=== PATIENT | female | born 1950 | race Caucasian/White ===

== ENCOUNTER → 2016-09-20 | Outpatient (CLI) | payer BC ==
[~2016-09-20] MED LIST: CLPD75T PO; LOVA40TA54 PO; LVT.112T PO; NFVALS90T PO
== END ==
LOC: CARD 13:38
PROVIDERS: ATTEND Internal Medicine
DX: Z48.812 Encounter for surgical aftercare following surgery on the circulatory system (principal); Z95.2 Presence of prosthetic heart valve
CPT/HCPCS: 93306

== ENCOUNTER → 2017-04-26 | Outpatient (CLI) | payer BC | LOC: CARD 13:26 | PROVIDERS: ATTEND Internal Medicine | DX: Z48.812 Encounter for surgical aftercare following surgery on the circulatory system (principal); Z45.2 Encounter for adjustment and management of vascular access device | CPT/HCPCS: 93306 ==

== ENCOUNTER → 2017-10-22 | Outpatient (CLI) | payer MEDICARE, BC ==
[~2017-10-22] VITALS: Ht 154.9 cm; Wt 78.9 kg
[~2017-10-22] MED LIST changes: +LIDOCAINE 1% INJ 20 ML 20 ML VIAL INJ ONE
[2017-10-22 13:17] VITALS: BP 124/80
[2017-10-22 13:51] VITALS: BP 112/74
--- NOTE | 2017-10-22 15:39 | Diagnostic Imaging Report ---
INDICATION: Right breast mass. The patient presents for ultrasound-guided core biopsy. TECHNIQUE: The patient was brought to the procedure room and placed on the table in the supine position. Ultrasound imaging over the right breast was performed to evaluate for an appropriate entry site. The right breast was then prepped and draped in the usual sterile fashion. A small amount of 1% lidocaine was utilized for local anesthesia. A total of four core biopsies was obtained of the ill-defined hypoechoic mass at the 11 o'clock location of the right breast 10 cm from the nipple utilizing a 14-gauge Achieve needle. A localizer clip was then deployed. Hemostasis was obtained using manual compression. The patient tolerated the procedure well and left the Department in stable condition. IMPRESSION: Successful ultrasound-guided core biopsy of the hypoechoic mass at the 11 o'clock location of the right breast 10 cm from the nipple. Dictated by: Dictated on workstation # [id number]
--- NOTE | 2017-10-22 15:45 | Diagnostic Imaging Report ---
INDICATION: Right breast mass. Patient is status post right breast biopsy using ultrasound guidance. TECHNIQUE: Unilateral right 2D CC and ML mammography was performed. FINDINGS: There is some increased density in the upper-outer right breast at the site of biopsy performed earlier the same today. A biopsy clip in the upper outer right breast is seen. The remainder of the breast is stable. IMPRESSION: Postbiopsy changes and clip placement at the area of increased density in the upper outer right breast at posterior depth. The pathologic results are currently pending. Dictated by: Dictated on workstation # [id number]
== END ==
LOC: RAD 12:38
PROVIDERS: ATTEND Surgery
DX: N63.11 Unspecified lump in the right breast, upper outer quadrant (principal); N61.0 Mastitis without abscess
CPT/HCPCS: 19083; 88305

== ENCOUNTER → 2018-01-15 | Outpatient (CLI) | payer BC, MEDICARE ==
[~2018-01-15] MED LIST changes: +CATHETER FLUSH 10 ML SYR IV PRN; -LIDOCAINE 1% INJ 20 ML 20 ML VIAL INJ ONE; +REGADENOSON 0.4 MG/5 ML SYR (LEXISCAN) IV ONE
[2018-01-15 09:57] VITALS: BP 166/77
--- NOTE | 2018-01-16 12:02 | STRESS TEST ---
DATE OF SERVICE: 01/15/2018 RESTING AND POST REGADENOSON TECHNETIUM-99M TETROFOSMIN SPECT CT IMAGING ORDERING PHYSICIAN: Jonna Bella MD, YVONNE, FACP, FACC. PRIMARY PHYSICIAN: Dr. Zuniga. CLINICAL DIAGNOSES: Coronary artery disease, diabetes, hypertension. Baseline images were carried out after injection of 10.36 mCi of technetium-99m Tetrofosmin. This was followed by 0.4 mg regadenoson and 29.2 mCi of technetium-99m Tetrofosmin for stress imaging. The electrocardiogram showed sinus rhythm with occasional isolated premature atrial contractions. The electrocardiogram did not change significantly with the regadenoson infusion. The patient tolerated the procedure well. Review of images at rest and following stress does not indicate any distinct perfusion defects consistent with significant myocardial ischemia or infarction. Gated images show normal global left ventricular systolic function with normal regional wall motion. Left ventricular ejection fraction is calculated to be 73%. Left ventricular end-diastolic volume is 44 mL. TID is absent (1.03). CONCLUSIONS: 1. No evidence of any significant myocardial ischemia or infarction is seen. 2. Normal regional wall motion. 3. Normal global left ventricular systolic function with a calculated ejection fraction of 73%. Job ID: [id number] DocumentID: [id number] Dictated Date: 01/16/2018 09:45:30 School Counsellor Date: 01/16/2018 12:01:43 Dictated By: JONNA BELLA MD, MA, FACP, FACC,
== END ==
LOC: CARD 07:24
PROVIDERS: ATTEND Internal Medicine Cardiovascular Disease
DX: I25.10 Atherosclerotic heart disease of native coronary artery without angina pectoris (principal); I10 Essential (primary) hypertension; E11.9 Type 2 diabetes mellitus without complications; E66.8 Other obesity; Z68.32 Body mass index [BMI] 32.0-32.9, adult; Z95.2 Presence of prosthetic heart valve
CPT/HCPCS: 78452; 93017

== ENCOUNTER 2018-08-23 05:47 | Outpatient (CLI) | payer MEDICARE ==
[~2018-08-23] VITALS: Ht 149.9 cm; Wt 78.5 kg
[~2018-08-23 05:47] MED LIST changes: -CATHETER FLUSH 10 ML SYR IV PRN; -REGADENOSON 0.4 MG/5 ML SYR (LEXISCAN) IV ONE
[2018-08-23] MEDS ORDERED: METO-387 PO (13:51)
[2018-08-23] MEDS ORDERED: ATOR40TA70 PO (13:51)
[2018-08-23] MEDS ORDERED: LEVO100T7 PO (13:51)
[2018-08-23] MEDS ORDERED: CAND1TAB16 PO (13:51)
[2018-08-23] MEDS ORDERED: WARF5TAB8 PO ×2 (13:51)
== END 2018-08-23 13:53 | disposition home or self-care (01) ==
LOC: PREOP 05:47
PROVIDERS: ATTEND Internal Medicine
DX: Z01.818 Encounter for other preprocedural examination (principal)

== ENCOUNTER 2018-08-30 08:01 | Day surgery (SDC) | payer MEDICARE ==
[~2018-08-30] VITALS: Ht 149.9 cm; Wt 78.5 kg
[~2018-08-30 08:01] MED LIST changes: +ATOR40TA70 PO; +CAND1TAB16 PO; +LEVO100T7 PO; +METO-387 PO; +WARF5TAB8 PO
[2018-08-30 08:05] VITALS: BP 125/60
[2018-08-30] MEDS ORDERED: D5 LR IV SOLUTION 1,000 ML IV ONE (08:15)
[2018-08-30] MEDS ORDERED: D5 LR IV SOLUTION 1,000 ML IV STA (08:26)
[2018-08-30] MEDS ORDERED: LIDOCAINE JELLY 2% 6 ML SYRINGE MM PRN (08:30)
[2018-08-30] MEDS ORDERED: MIDAZOLAM 2 MG/2 ML (VERSED) VIAL IVP ONE (08:30)
[2018-08-30] MEDS ORDERED: fentaNYL INJECTION 100 MCG/2 ML AMP IVP ONE (08:30)
[2018-08-30] MEDS ORDERED: MIDAZOLAM 2 MG/2 ML (VERSED) VIAL ONE (08:45)
[2018-08-30] MEDS ORDERED: LIDOCAINE JELLY 2% 6 ML SYRINGE ONE (08:46)
[2018-08-30] MEDS ORDERED: fentaNYL INJECTION 100 MCG/2 ML AMP ONE (08:46)
--- NOTE | 2018-08-30 09:06 | Pre-Op Note & Conscious Sedat ---
Pre-Operative Progress Note H&P Reviewed The H&P was reviewed, patient examined and no changes noted. Date H&P Reviewed: Aug 30, 2018 Time H&P Reviewed: 08:55 Conscious Sedation Pre-Proced ASA Score 2 For ASA 3 and 4: Consider anesthesia and medical clearance. Also, for patients with a history of failed moderate sedation consider anesthesia. Airway Lungs Heart ASA score ASA 1: a normal healthy patient ASA 2: a patient with a mild systemic disease (mid diabetes, controlled hypertension, obesity ASA 3: a patient with a severe systemic disease that limits activity (angina , COPD, prior Myocardial infarction) ASA 4: a patient with an incapacitating disease that is a constant threat to life (CHF, renal failure) ASA 5: a moribund patient not expected to survive 24 hrs. (ruptured aneurysm) ASA 6: a declared brain- patient whose organs are being harvested. For emergent operations, add the letter E after the classification Mallampati Classification Grade 2 Sedation Plan Analgesia, Amnesia, Plan communicated to team members, Discussed options with patient/fam, Discussed risks with patient/fam The patient is an appropriate candidate to undergo the planned procedure, sedation, and anesthesia. The patient immediately re-assessed prior to indication. TOM ISIDRO MD Aug 30, 2018 09:06
[2018-08-30 09:40] VITALS: BP 110/55
[2018-08-30 10:10] VITALS: BP 128/52
--- OUTSIDE RECORDS SUMMARY | 2018-08-30 10:13 | XMS REPORT ---
Author Author MARIELY TSE [facility] Address [address] [place] [address] Care Team Providers Care Sign Shop Supervisor Name Role Phone MARIELY TSE Unavailable PROBLEMS Type Condition ICD9-CM Code [id number] Code Onset Dates Condition Status SNOMED Code Problem Type 2 diabetes mellitus without complication, without long-term current use of insulin E11.9 Active [id number] ALLERGIES Unknown Allergies SOCIAL HISTORY No smoking Hx information available PLAN OF CARE VITAL SIGNS MEDICATIONS Unknown Medications RESULTS No Results PROCEDURES Procedure Date Ordered Related Diagnosis Body Site PCV 13 May 23, 2016 SINGLE IMMUNIZATION ADMIN May 23, 2016 IMMUNIZATIONS Vaccine Route Administration Date Status PCV 13 IM Intramuscular May 23, 2016 Administered
--- OUTSIDE RECORDS SUMMARY | 2018-08-30 10:13 | XMS REPORT | Continuity of Care Document ---
Author Organization Unknown Address Unknown Allergies Active Description Code Type Severity Reaction Onset Reported/Identified Relationship to Patient Clinical Status Yes No Known Drug Allergies [id number] Drug Allergy Unknown N/A 05/21/2007 Medications There is no data. Problems Date Dx Coded Attending Type Code Diagnosis Diagnosed By 03/19/2015 TOM ISIDRO MD Ot I10 03/19/2015 TOM ISIDRO MD Ot Z48.812 03/19/2015 TOM ISIDRO MD Ot Z95.2 03/31/2015 TOM ISIDRO MD Ot I10 03/31/2015 TOM ISIDRO MD Ot Z48.812 03/31/2015 TOM ISIDRO MD Ot Z95.2 09/20/2016 TOM ISIDRO MD Ot I10 ESSENTIAL (PRIMARY) HYPERTENSION 09/20/2016 TOM ISIDRO MD Ot Z48.812 ENCNTR FOR SURGICAL AFTCR FOLLOWING SURG 09/20/2016 TOM ISIDRO MD Ot Z95.2 PRESENCE OF PROSTHETIC HEART VALVE 10/10/2016 TOM ISIDRO MD Ot Z48.812 ENCNTR FOR SURGICAL AFTCR FOLLOWING SURG 10/10/2016 TOM ISIDRO MD Ot Z95.2 PRESENCE OF PROSTHETIC HEART VALVE 04/23/2017 TOM ISIDRO MD Ot I10 ESSENTIAL (PRIMARY) HYPERTENSION 04/23/2017 TOM ISIDRO MD Ot Z48.812 ENCNTR FOR SURGICAL AFTCR FOLLOWING SURG 04/23/2017 TOM ISIDRO MD Ot Z95.2 PRESENCE OF PROSTHETIC HEART VALVE 04/23/2017 TOM ISIDRO MD Ot Z48.812 ENCNTR FOR SURGICAL AFTCR FOLLOWING SURG 04/23/2017 TOM ISIDRO MD Ot Z95.2 PRESENCE OF PROSTHETIC HEART VALVE 05/18/2017 TOM ISIDRO MD Ot Z45.2 ENCOUNTER FOR ADJUSTMENT AND MANAGEMENT 05/18/2017 TOM ISIDRO MD Ot Z48.812 ENCNTR FOR SURGICAL AFTCR FOLLOWING SURG 10/22/2017 DELMAN DO, SKY B Ot R92.8 OTH ABN AND INCONCLUSIVE FINDINGS ON DX 10/24/2017 DELMAN DO, SKY B Ot R92.8 OTH ABN AND INCONCLUSIVE FINDINGS ON DX 10/26/2017 DELMAN DO, SKY B Ot N61.0 MASTITIS WITHOUT ABSCESS 10/26/2017 DELMAN DO, SKY B Ot N63.11 UNSPECIFIED LUMP IN THE RIGHT BREAST, UP 11/15/2017 DELMAN DO, SKY B Ot N61.0 MASTITIS WITHOUT ABSCESS 11/15/2017 DELMAN DO, SKY B Ot N63.11 UNSPECIFIED LUMP IN THE RIGHT BREAST, UP 01/11/2018 DWAINE DRISCOLL, TOM Panda Ot I10 ESSENTIAL (PRIMARY) HYPERTENSION 01/11/2018 TOM ISIDRO MD Ot Z48.812 ENCNTR FOR SURGICAL AFTCR FOLLOWING SURG 01/11/2018 TOM ISIDRO MD Ot Z95.2 PRESENCE OF PROSTHETIC HEART VALVE 01/11/2018 TOM ISIDRO MD Ot Z48.812 ENCNTR FOR SURGICAL AFTCR FOLLOWING SURG 01/11/2018 TOM ISIDRO MD Ot Z95.2 PRESENCE OF PROSTHETIC HEART VALVE 01/11/2018 TOM ISIDRO MD Ot Z45.2 ENCOUNTER FOR ADJUSTMENT AND MANAGEMENT 01/11/2018 TOM ISIDRO MD Ot Z48.812 ENCNTR FOR SURGICAL AFTCR FOLLOWING SURG 01/11/2018 DELMAN DO, SKY B Ot N61.0 MASTITIS WITHOUT ABSCESS 01/11/2018 DELMAN DO, SKY B Ot N63.11 UNSPECIFIED LUMP IN THE RIGHT BREAST, UP 01/11/2018 TOM ISIDRO MD Ot I10 ESSENTIAL (PRIMARY) HYPERTENSION 01/11/2018 TOM ISIDRO MD Ot Z48.812 ENCNTR FOR SURGICAL AFTCR FOLLOWING SURG 01/11/2018 TOM ISIDRO MD Ot Z95.2 PRESENCE OF PROSTHETIC HEART VALVE 01/11/2018 TOM ISIDRO MD Ot Z48.812 ENCNTR FOR SURGICAL AFTCR FOLLOWING SURG 01/11/2018 TOM ISIDRO MD Ot Z95.2 PRESENCE OF PROSTHETIC HEART VALVE 01/11/2018 TOM ISIDRO MD Ot Z45.2 ENCOUNTER FOR ADJUSTMENT AND MANAGEMENT 01/11/2018 DWAINE DRISCOLL, TOM Panda Ot Z48.812 ENCNTR FOR SURGICAL AFTCR FOLLOWING SURG 01/11/2018 DELMAN DO, SKY B Ot N61.0 MASTITIS WITHOUT ABSCESS 01/11/2018 DELMAN DO, SKY B Ot N63.11 UNSPECIFIED LUMP IN THE RIGHT BREAST, UP 01/13/2018 DWAINE DRISCOLL, TOM Panda Ot I10 ESSENTIAL (PRIMARY) HYPERTENSION 01/13/2018 DWAINE DRISCOLL, TOM Panda Ot Z48.812 ENCNTR FOR SURGICAL AFTCR FOLLOWING SURG 01/13/2018 TOM ISIDRO MD Ot Z95.2 PRESENCE OF PROSTHETIC HEART VALVE 01/13/2018 DWAINE DRISCOLL, TOM Panda Ot Z48.812 ENCNTR FOR SURGICAL AFTCR FOLLOWING SURG 01/13/2018 TOM ISIDRO MD Ot Z95.2 PRESENCE OF PROSTHETIC HEART VALVE 01/13/2018 TOM ISIDRO MD Ot Z45.2 ENCOUNTER FOR ADJUSTMENT AND MANAGEMENT 01/13/2018 TOM ISIDRO MD Ot Z48.812 ENCNTR FOR SURGICAL AFTCR FOLLOWING SURG 01/13/2018 DELMAN DO, SKY B Ot N61.0 MASTITIS WITHOUT ABSCESS 01/13/2018 DELMAN DO, SKY B Ot N63.11 UNSPECIFIED LUMP IN THE RIGHT BREAST, UP 01/15/2018 DWAINE DRISCOLL, TOM Panda Ot I10 ESSENTIAL (PRIMARY) HYPERTENSION 01/15/2018 TOM ISIDRO MD Ot Z48.812 ENCNTR FOR SURGICAL AFTCR FOLLOWING SURG 01/15/2018 TOM ISIDRO MD Ot Z95.2 PRESENCE OF PROSTHETIC HEART VALVE 01/15/2018 TOM ISIDRO MD Ot Z48.812 ENCNTR FOR SURGICAL AFTCR FOLLOWING SURG 01/15/2018 TOM ISIDRO MD Ot Z95.2 PRESENCE OF PROSTHETIC HEART VALVE 01/15/2018 TOM ISIDRO MD Ot Z45.2 ENCOUNTER FOR ADJUSTMENT AND MANAGEMENT 01/15/2018 TOM ISIDRO MD Ot Z48.812 ENCNTR FOR SURGICAL AFTCR FOLLOWING SURG 01/15/2018 DELMAN DO, SKY B Ot N61.0 MASTITIS WITHOUT ABSCESS 01/15/2018 DELMAN DO, SKY B Ot N63.11 UNSPECIFIED LUMP IN THE RIGHT BREAST, UP 01/17/2018 KINZA DRISCOLL FACC, ALI FACP CCDS Ot E11.9 TYPE 2 DIABETES MELLITUS WITHOUT COMPLIC 01/17/2018 KINZA MD FACC, ALI FACP CCDS Ot E66.8 OTHER OBESITY 01/17/2018 KINZA MD FACC, ALI FACP CCDS Ot I10 ESSENTIAL (PRIMARY) HYPERTENSION 01/17/2018 KINZA MD FACC, ALI FACP CCDS Ot I25.10 ATHSCL HEART DISEASE OF [place] CORONARY 01/17/2018 KINZA DRISCOLL FACC, ALI FACP CCDS Ot Z68.32 BODY MASS INDEX (BMI) 32.0-32.9, ADULT 01/17/2018 KINZA DRISCOLL FACC, ALI FACP CCDS Ot Z95.2 PRESENCE OF PROSTHETIC HEART VALVE 02/06/2018 KINZA DRISCOLL FACC, ALI FACP CCDS Ot E11.9 TYPE 2 DIABETES MELLITUS WITHOUT COMPLIC 02/06/2018 KINZA MD FACC, ALI FACP CCDS Ot E66.8 OTHER OBESITY 02/06/2018 KINZA DRISCOLL FACC, ALI FACP CCDS Ot I10 ESSENTIAL (PRIMARY) HYPERTENSION 02/06/2018 KINZA DRISCOLL FACC, ALI FACP CCDS Ot I25.10 ATHSCL HEART DISEASE OF [place] CORONARY 02/06/2018 KINZA DRISCOLL FACC, ALI FACP CCDS Ot Z68.32 BODY MASS INDEX (BMI) 32.0-32.9, ADULT 02/06/2018 KINZA DRISCOLL FACC, ALI FACP CCDS Ot Z95.2 PRESENCE OF PROSTHETIC HEART VALVE 08/15/2018 PHILIPP DO, SKY B Ot N61.0 MASTITIS WITHOUT ABSCESS 08/15/2018 PHILIPP DO SKY B Ot N63.11 UNSPECIFIED LUMP IN THE RIGHT BREAST, UP 08/23/2018 TOM ISIDRO MD Ot I10 ESSENTIAL (PRIMARY) HYPERTENSION 08/23/2018 TOM ISIDRO MD Ot Z48.812 ENCNTR FOR SURGICAL AFTCR FOLLOWING SURG 08/23/2018 TOM ISIDRO MD Ot Z95.2 PRESENCE OF PROSTHETIC HEART VALVE 08/23/2018 TOM ISIDRO MD Ot Z48.812 ENCNTR FOR SURGICAL AFTCR FOLLOWING SURG 08/23/2018 TOM ISIDRO MD Ot Z95.2 PRESENCE OF PROSTHETIC HEART VALVE 08/23/2018 TOM ISIDRO MD Ot Z45.2 ENCOUNTER FOR ADJUSTMENT AND MANAGEMENT 08/23/2018 TOM ISIDRO MD Ot Z48.812 ENCNTR FOR SURGICAL AFTCR FOLLOWING SURG 08/23/2018 PHILIPP DO, SKY B Ot N61.0 MASTITIS WITHOUT ABSCESS 08/23/2018 DELMAN DO, SKY B Ot N63.11 UNSPECIFIED LUMP IN THE RIGHT BREAST, UP 08/23/2018 KINZA DRISCOLL FACC, ALI FACP CCDS Ot E11.9 TYPE 2 DIABETES MELLITUS WITHOUT COMPLIC 08/23/2018 KINZA DRISCOLL FACC, ALI FACP CCDS Ot E66.8 OTHER OBESITY 08/23/2018 KINZA DRISCOLL FACC, ALI FACP CCDS Ot I10 ESSENTIAL (PRIMARY) HYPERTENSION 08/23/2018 KINZA DRISCOLL FACC, ALI FACP CCDS Ot I25.10 ATHSCL HEART DISEASE OF [place] CORONARY 08/23/2018 KINZA DRISCOLL FACC, ALI FACP CCDS Ot Z68.32 BODY MASS INDEX (BMI) 32.0-32.9, ADULT 08/23/2018 KINZA DRISCOLL FACC, ALI FACP CCDS Ot Z95.2 PRESENCE OF PROSTHETIC HEART VALVE 08/23/2018 TOM ISIDRO MD, Ot Z01.818 ENCOUNTER FOR OTHER PREPROCEDURAL EXAMIN 08/28/2018 TOM ISIDRO MD, Ot I10 ESSENTIAL (PRIMARY) HYPERTENSION 08/28/2018 TOM ISIDRO MD, Ot Z48.812 ENCNTR FOR SURGICAL AFTCR FOLLOWING SURG 08/28/2018 TOM ISIDRO MD Ot Z95.2 PRESENCE OF PROSTHETIC HEART VALVE 08/28/2018 TOM ISIDRO MD, Ot Z48.812 ENCNTR FOR SURGICAL AFTCR FOLLOWING SURG 08/28/2018 TOM ISIDRO MD Ot Z95.2 PRESENCE OF PROSTHETIC HEART VALVE 08/28/2018 TOM ISIDRO MD Ot Z45.2 ENCOUNTER FOR ADJUSTMENT AND MANAGEMENT 08/28/2018 TOM ISIDRO MD, Ot Z48.812 ENCNTR FOR SURGICAL AFTCR FOLLOWING SURG 08/28/2018 PHILIPP DO, SKY B Ot N61.0 MASTITIS WITHOUT ABSCESS 08/28/2018 PHILIPP DOJOSÉ LUISIC B Ot N63.11 UNSPECIFIED LUMP IN THE RIGHT BREAST, UP 08/28/2018 KINZA DRISCOLL FACC, ALI FACP CCDS Ot E11.9 TYPE 2 DIABETES MELLITUS WITHOUT COMPLIC 08/28/2018 KINZA DRISCOLL FACC, CHANCE FACP CCDS Ot E66.8 OTHER OBESITY 08/28/2018 KINZA DRISCOLL FACC, ALI FACP CCDS Ot I10 ESSENTIAL (PRIMARY) HYPERTENSION 08/28/2018 KINZA DRISCOLL FACC, ALI FACP CCDS Ot I25.10 ATHSCL HEART DISEASE OF [place] CORONARY 08/28/2018 KINZA DRISCOLL FACC, ALI FACP CCDS Ot Z68.32 BODY MASS INDEX (BMI) 32.0-32.9, ADULT 08/28/2018 KINZA DRISCOLL FACC, CHANCE FACP CCDS Ot Z95.2 PRESENCE OF PROSTHETIC HEART VALVE 08/30/2018 TOM ISIDRO MD Ot I10 ESSENTIAL (PRIMARY) HYPERTENSION 08/30/2018 TOM ISIDRO MD Ot Z48.812 ENCNTR FOR SURGICAL AFTCR FOLLOWING SURG 08/30/2018 TOM ISIDRO MD Ot Z95.2 PRESENCE OF PROSTHETIC HEART VALVE 08/30/2018 TOM ISIDRO MD Ot Z48.812 ENCNTR FOR SURGICAL AFTCR FOLLOWING SURG 08/30/2018 TOM ISIDRO MD Ot Z95.2 PRESENCE OF PROSTHETIC HEART VALVE 08/30/2018 TOM ISIDRO MD Ot Z45.2 ENCOUNTER FOR ADJUSTMENT AND MANAGEMENT 08/30/2018 TOM ISIDRO MD Ot Z48.812 ENCNTR FOR SURGICAL AFTCR FOLLOWING SURG 08/30/2018 SKY SEGAL DO Ot N61.0 MASTITIS WITHOUT ABSCESS 08/30/2018 SKY SEGAL DO Ot N63.11 UNSPECIFIED LUMP IN THE RIGHT BREAST, UP 08/30/2018 KINZA DRISCOLL FACC, CHANCE FACP CCDS Ot E11.9 TYPE 2 DIABETES MELLITUS WITHOUT COMPLIC 08/30/2018 KINZA DRISCOLL FACC, CHANCE FACP CCDS Ot E66.8 OTHER OBESITY 08/30/2018 KINZA DRISCOLL FACC, CHANCE FACP CCDS Ot I10 ESSENTIAL (PRIMARY) HYPERTENSION 08/30/2018 KINZA DRISCOLL FACC, ALI FACP CCDS Ot I25.10 ATHSCL HEART DISEASE OF [place] CORONARY 08/30/2018 KINZA DRISCOLL FACC, ALI FACP CCDS Ot Z68.32 BODY MASS INDEX (BMI) 32.0-32.9, ADULT 08/30/2018 KINZA DRISCOLL FACC, CHANCE FACP CCDS Ot Z95.2 PRESENCE OF PROSTHETIC HEART VALVE Procedures There is no data. Results There is no data. Encounters ACCT No. Visit Date/Time Discharge Status Pt. Type Provider Facility Loc./Unit Complaint [id number] 08/23/2018 05:47:00 08/23/2018 13:53:00 DIS Outpatient TOM ISIDRO MD [facility] PREOP COLONOSCOPY [id number] 01/15/2018 07:24:00 01/15/2018 23:59:59 CLS Outpatient KINZA DRISCOLL FACCHANCE Lindsay FACP CCDS [facility] CARD CHD,DM,HTN,S/ P AVR,OTHER OBESITY [id number] 10/22/2017 12:38:00 10/22/2017 23:59:59 CLS Outpatient SKY SEGAL DO [facility] RAD LUMP IN RT BREAST UPPER OUTER QUADRANT [id number] 04/26/2017 13:26:00 04/26/2017 23:59:59 CLS Outpatient TOM ISIDRO MD [facility] CARD HISTORY OF AORTIC VALVE REPLACEMENT [id number] 09/20/2016 13:38:00 09/20/2016 23:59:59 CLS Outpatient TOM ISIDRO MD [facility] CARD F/U AORTIC VALVE REPLACEMENT [id number] 03/18/2015 07:28:00 03/18/2015 23:59:59 CLS Outpatient TOM ISIDRO MD [facility] CARD MECHANICAL AORTIC VALVE , HTN [id number] 11/25/2013 16:35:00 11/25/2013 23:59:59 CLS Outpatient [id number] 08/30/2018 08:01:00 ACT Outpatient TOM ISIDRO MD [facility] ENDO SCREENING
[2018-08-30 10:35] VITALS: BP 128/52
--- NOTE | 2018-08-30 20:57 | OPERATIVE REPORT ---
DATE OF SERVICE: 08/30/2018 COLONOSCOPY SUMMARY INDICATION FOR THE PROCEDURE: Screening. The patient was placed in left lateral decubitus position. Prior to undergoing colonoscopy, digital rectal evaluation was performed. Anal sphincter tone was normal and the perianal reflex is intact. The colonoscope was then inserted into the rectum and under direct visualization advanced to the cecum. The cecum was identified by identification of the ileocecal valve and cecal strap. Photographic documentation was obtained. Careful inspection was made as the colonoscope was withdrawn. The patient tolerated the procedure well. FINDINGS: There is no evidence for internal or external hemorrhoids and the rectum was unremarkable. Two small sigmoid diverticulum were present, otherwise unremarkable. The descending colon, transverse colon, ascending colon and cecum were normal in appearance. ASSESSMENT AND PLAN: Two small diverticulum were noted in the sigmoid colon with otherwise normal colonoscopy to the cecum. The patient has noticed some softening of her stool. It was advised that she take calcium carbonate 500 mg b.i.d. She is reassured by today's findings. It is questionable as to whether or not future surveillance colonoscopy will be recommended considering age and medical comorbidities. Job ID: [id number] DocumentID: [id number] Dictated Date: 08/30/2018 10:34:55 Compliance Coordinator Date: 08/30/2018 20:56:08 Dictated By: TOM ISIDRO MD
--- NOTE | 2018-09-04 10:41 | HISTORY AND PHYSICAL ---
DATE OF SERVICE: Screening colonoscopy H and P HISTORY OF PRESENT ILLNESS: The patient is a 67-year-old white female seen in the office on August 19 for followup of hypertension, hyperlipidemia, coronary artery disease and history of aortic valve replacement. In reviewing her records, it has been over 10 years since her last colonoscopy that did not reveal any evidence for neoplasia. She reports that she has been having 1 or 2 loose stools for the past 6 months without evidence for bleeding, bright red or melena. Her weight has been stable, but she does note some urgency. She has had no fecal incontinence episodes. She has had no chest pain. Denies shortness of breath, orthopnea, PND or pedal edema. She denies any associated abdominal pain, bloating, distention or discomfort. PAST MEDICAL HISTORY: Significant for mechanical aortic valve replacement, [facility] in September of 2011. She also had LAD stent placement prior to this in 2009. For obesity, she has a past gastric bypass in 2008 and a longstanding history for hypertension as well as hyperlipidemia. MEDICATIONS ON ADMISSION: Include Coumadin unknown dose, candesartan HCT 32/12.5 daily, metoprolol ER 25 mg daily, atorvastatin 40 mg daily, L-thyroxine 0.1 mg. PHYSICAL EXAMINATION: GENERAL: Reveals a pleasant overweight white female, in no acute distress. VITAL SIGNS: Weight stable 197 pounds, blood pressure 148/68 at the beginning of the interview, 130/62 at the end. HEENT: Oral cavity clear. Mallampati 2 pharyngeal configuration. NECK: Revealed no JVD, adenopathy or bruits. CHEST: Clear to auscultation. CARDIOVASCULAR: Reveals a regular rate and rhythm with metallic S1, S2 and a soft 1-2/6 systolic ejection murmur heard over the aortic outflow tract. ABDOMEN: Obese, soft, supple, nontender. No mass or organomegaly noted. EXTREMITIES: Reveal no cyanosis, clubbing or edema. ASSESSMENT AND PLAN: 1. The patient was set up for screening colonoscopy on August 30. She will discontinue her Coumadin 48 hours prior for the procedure with INR the morning of. 2. Hyperlipidemia has been under good control on atorvastatin. Continue. 3. Hypertension, under reasonable control. 4. Coumadin management for aortic valve replacement. Continue monthly INRs, current Coumadin dose. We will see her back for regular followup at the end of September. Job ID: [id number] DocumentID: [id number] Dictated Date: 08/19/2018 16:15:10 Sky Cap Date: 08/19/2018 16:40:46 Dictated By: TOM ISIDRO MD
== END 2018-08-30 10:35 | disposition home or self-care (01) ==
LOC: ENDO 08:01
PROVIDERS: ATTEND Internal Medicine
DX: Z12.11 Encounter for screening for malignant neoplasm of colon (principal); K57.30 Diverticulosis of large intestine without perforation or abscess without bleeding; I10 Essential (primary) hypertension; E78.5 Hyperlipidemia, unspecified; I25.10 Atherosclerotic heart disease of native coronary artery without angina pectoris; E66.9 Obesity, unspecified; Z68.34 Body mass index [BMI] 34.0-34.9, adult; Z95.2 Presence of prosthetic heart valve; Z98.84 Bariatric surgery status; Z79.01 Long term (current) use of anticoagulants; Z79.899 Other long term (current) drug therapy

== ENCOUNTER 2018-10-07 16:33 | Inpatient (IN) | payer MEDICARE ==
[~2018-10-07] VITALS: Ht 149.9 cm; Wt 89.8 kg
[2018-10-07] VITALS (15 sets, daily range): BP systolic 108–158; BP diastolic 41–69
[2018-10-07 17:16] LABS: BASOPHILS # (AUTO) 0.1 10^3/uL (0.0-0.1); BASOPHILS % (AUTO) 1 % (0-10); EOSINOPHILS # (AUTO) 0.2 10^3/uL (0.0-0.3); EOSINOPHILS % (AUTO) 2 % (0-10); HEMATOCRIT 25 % (35-52); HEMOGLOBIN 8.3 G/DL (11.5-16.0); LYMPHOCYTES # (AUTO) 3.8 X 10^3 (1.0-4.0); LYMPHOCYTES % (AUTO) 36 % (12-44); MEAN CORPUSCULAR HEMOGLOBIN 28 PG (25-34); MEAN CORPUSCULAR HGB CONC 33 G/DL (32-36); MEAN CORPUSCULAR VOLUME 85 FL (80-99); MEAN PLATELET VOLUME 10.5 FL (7.4-10.4); MONOCYTES # (AUTO) 0.6 X 10^3 (0.0-1.0); MONOCYTES % (AUTO) 5 % (0-12); NEUTROPHILS # (AUTO) 5.9 X 10^3 (1.8-7.8); NEUTROPHILS % (AUTO) 56 % (42-75); PLATELET COUNT 260 10^3/uL (130-400); RED CELL DISTRIBUTION WIDTH 15.1 % (10.0-14.5); WHITE BLOOD COUNT 10.5 10^3/uL (4.3-11.0)
--- NOTE | 2018-10-07 17:21 | ED Abdominal Pain ---
General Chief Complaint: Rect Problems Stated Complaint: DIZZINESS,BLOOD IN STOOL Nursing Triage Note: PT STATES SHE HAS HAD DIARRHEA SINCE 1500 AND HAS NOTICED BRIGHT RED BLOOD WITH THE DIARRHEA. PT STATES SHE HAS FELT DIZZY AND FAINT WELL. PT DENIES N/V/D/FEVER. PT DENIES GI BLEED HISTORY. PT STATES SHE TAKES A DAILY ASPIRIN AND WARFARIN. Sepsis Screen: No Definite Risk Source of Information: Patient Exam Limitations: No Limitations History of Present Illness Date Seen by Provider: October 07, 2018 Time Seen by Provider: 16:56 Initial Comments Here with report of rectal bleeding. States it started at 6 AM and she's had several small stools that were all bloody and/or dark. Last one was about an hour ago. Denies significant abdominal pain but admits that she's had dyspnea on exertion and chest tightness with exertion that she describes as shortness of breath. She is on warfarin and aspirin for aortic valve replacement. Denies nausea or vomiting. Timing/Duration: 12 Hours Severity/Quality: Mild, Moderate Location: Other (rectal) Radiation: No Radiation Activities at Onset: None Associated Symptoms: No Chest Pain, No Fever/Chills, No Nausea/Vomiting; Shortness of Air, Weakness Allergies and Home Medications Allergies Coded Allergies: No Known Drug Allergies (Verified , 05/21/07) Home Medications Atorvastatin Calcium 40 Mg Tablet, 40 MG PO HS, (Reported) Candesartan/Hydrochlorothiazid 1 Each Tablet, 1 EACH PO DAILY, (Reported) Levothyroxine Sodium 100 Mcg Tablet, 100 MCG PO DAILY, (Reported) Metoprolol Succinate 25 Mg Tab.er.24h, 25 MG PO DAILY, (Reported) Warfarin Sodium 5 Mg Tablet, 5 MG PO We, (Reported) Warfarin Sodium 5 Mg Tablet, 2.5 MG PO [facility], (Reported) take 1/2 of 5mg tab Patient Home Medication List Home Medication List Reviewed: Yes Review of Systems Review of Systems Constitutional: see HPI; No chills, No fever EENTM: No Symptoms Reported Respiratory: SOA With Exertion; Denies Wheezing Cardiovascular: Denies Chest Pain; Lightheadedness Gastrointestinal: Denies Abdominal Pain; Rectal Bleeding Genitourinary: No Symptoms Reported Musculoskeletal: no symptoms reported Skin: no symptoms reported Psychiatric/Neurological: Denies Headache; Weakness Endocrine: No Symptoms Reported All Other Systems Reviewed Negative Unless Noted: Yes Past Edqdrqu-Pfmyxm-Exhyxo Hx Past Med/Social Hx: Reviewed Nursing Past Med/Soc Hx Patient Social History Alcohol Use: Denies Use Recreational Drug Use: No Smoking Status: Never a Smoker Recent Foreign Travel: No Contact w/Someone Who Travel: No Recent Infectious Disease Expo: No Recent Hopitalizations: No Immunizations Up To Date Tetanus Booster (TDap): Unknown PED Vaccines UTD: No Date of Pneumonia Vaccine: Dec 28, 2010 Past Medical History Surgeries: Yes ( ovarian cyst removal, 2011 aortic valve replaced, gastric bypass) Coronary Stent, Hysterectomy, Valve Replacement Respiratory: No Cardiac: Yes (aortic valve replaced) Hypertension, Valvular Heart Disease Neurological: No Genitourinary: No Gastrointestinal: No Musculoskeletal: No Endocrine: Yes Hypothyroidsim, Lupus HEENT: Yes (cataracts removed) Cancer: No Psychosocial: No Integumentary: No Blood Disorders: No Family Medical History Reviewed Nursing Family Hx No Pertinent Family Hx Physical Exam Vital Signs Vital Signs - First Documented 10/07/18 16:38 Temp 97.6 Pulse 81 Resp 18 B/P (MAP) 135/50 (78) Pulse Ox 99 O2 Delivery Room Air Capillary Refill : Less Than 3 Seconds Height/Weight/BMI Height: 4'11.00" Weight: 190lbs. 0.0oz. 86.906522ob; 34.9 BMI Method:Stated General Appearance: WD/WN, no apparent distress HEENT: PERRL/EOMI, pharynx normal Neck: full range of motion, supple Respiratory: lungs clear, normal breath sounds Cardiovascular: regular rate, rhythm, no murmur Gastrointestinal: non tender, soft Rectal: black stool, blood streaked stool, heme positive stool Extremities: non-tender, normal inspection Back: normal inspection, no CVA tenderness, no vertebral tenderness Neurologic/Psychiatric: alert, oriented x 3 Skin: warm/dry, pallor Progress/Results/Core Measures Results/Orders Lab Results Laboratory Tests Test 10/07/18 16:55 Range/Units White Blood Count 10.5 4.3-11.0 10^3/uL Red Blood Count 3.00 L 4.35-5.85 10^6/uL Hemoglobin 8.3 L 11.5-16.0 G/DL Hematocrit 25 L 35-52 % Mean Corpuscular Volume 85 80-99 FL Mean Corpuscular Hemoglobin 28 25-34 PG Mean Corpuscular Hemoglobin Concent 33 32-36 G/DL Red Cell Distribution Width 15.1 H 10.0-14.5 % Platelet Count 260 130-400 10^3/uL Mean Platelet Volume 10.5 H 7.4-10.4 FL Neutrophils (%) (Auto) 56 42-75 % Lymphocytes (%) (Auto) 36 12-44 % Monocytes (%) (Auto) 5 0-12 % Eosinophils (%) (Auto) 2 0-10 % Basophils (%) (Auto) 1 0-10 % Neutrophils # (Auto) 5.9 1.8-7.8 X 10^3 Lymphocytes # (Auto) 3.8 1.0-4.0 X 10^3 Monocytes # (Auto) 0.6 0.0-1.0 X 10^3 Eosinophils # (Auto) 0.2 0.0-0.3 10^3/uL Basophils # (Auto) 0.1 0.0-0.1 10^3/uL Prothrombin Time 44.8 H 12.2-14.7 SEC INR Comment 4.5 H 0.8-1.4 Activated Partial Thromboplast Time 36 H 24-35 SEC Sodium Level 142 135-145 MMOL/L Potassium Level 4.1 3.6-5.0 MMOL/L Chloride Level 108 H 98-107 MMOL/L Carbon Dioxide Level 19 L 21-32 MMOL/L Anion Gap 15 H 5-14 MMOL/L Blood Urea Nitrogen 57 H 7-18 MG/DL Creatinine 1.08 0.60-1.30 MG/DL Estimat Glomerular Filtration Rate 51 BUN/Creatinine Ratio 53 Glucose Level 103 70-105 MG/DL Calcium Level 9.0 8.5-10.1 MG/DL Corrected Calcium 9.3 8.5-10.1 MG/DL Total Bilirubin 0.4 0.1-1.0 MG/DL Aspartate Amino Transf (AST/SGOT) 20 5-34 U/L Alanine Aminotransferase (ALT/SGPT) 25 0-55 U/L Alkaline Phosphatase 68 40-136 U/L Total Protein 5.8 L 6.4-8.2 GM/DL Albumin 3.6 3.2-4.5 GM/DL My Orders Orders - MICHAEL DOMÍNGUEZ MD Ed Iv/Invasive Line Start (10/07/18 16:52) Fecal Occult Bedside (10/07/18 16:52) Cbc With Automated Diff (10/07/18 16:52) Comprehensive Metabolic Panel (10/07/18 16:52) Protime With Inr (10/07/18 16:52) Partial Thromboplastin Time (10/07/18 16:52) Type And Screen (10/07/18 17:07) Fresh Frozen Plasma (10/07/18 17:51) Red Cells Leukocytes Reduced (10/07/18 17:51) Ns (Ivpb) (Sodium C... W/Pantoprazole In (10/07/18 18:00) Pantoprazole Injection (Protonix Injecti (10/07/18 18:00) Abo Rh Type (10/07/18 16:55) Ed Iv/Invasive Line Start (10/07/18 18:02) Ns Iv 1000 Ml (Sodium Chloride 0.9%) (10/07/18 18:02) Ns Iv 1000 Ml (Sodium Chloride 0.9%) (10/07/18 17:59) Medications Given in ED Current Medications Medications Dose Ordered Sig/Clarke Route Start Time Stop Time Status Last Admin Dose Admin Pantoprazole 80 mg ONCE ONCE IV 10/07/18 18:00 10/07/18 18:01 DC 10/07/18 18:00 80 MG Vital Signs/I&O 10/07/18 16:38 Temp 97.6 Pulse 81 Resp 18 B/P (MAP) 135/50 (78) Pulse Ox 99 O2 Delivery Room Air Blood Pressure Mean: 78 Fecal Occult: Negative Progress Progress Note : Progress Note Seen and evaluated. IV, labs, occult blood testing and type and screen ordered. Monitor patient. 1745: Hemoglobin 8.3 and this appears to be markedly decreased from previous. Blood pressure low and of normal. Patient definitely has symptoms with movement including tachycardia. Given the findings, it is concerning for upper GI bleed. Protonix 80 mg IV and 8 mg per hour drip ordered. I have discussed the case with Dr. Isidro. He is recommending 2 units of FFP and 2 units of packed red blood cells which been ordered. He requests consult with Dr. Shultz and this will be placed. 1809: Patient did have some hypotension with blood pressure 88/44 and 98/46. Normal saline 1 L bolus ordered pending blood. I did consult Dr. Shultz and he accepts patient in consult. Patient to be admitted to ICU to Dr. Isidro, inpatient status. 1815: Blood pressure 132/54 with heart rate at 68 and O2 100% on room air. Patient to be admitted. Findings and concerns discussed with patient. She agrees with plan. Departure Communication (Admissions) Time/Spoke to Admitting Phy: 17:49 Time/Spoke to Consulting Phy: 18:09 Impression Primary Impression: GI bleed Qualified Codes: K92.2 - Gastrointestinal hemorrhage, unspecified Disposition: ADMITTED INPATIENT Condition: Stable Admissions Decision to Admit Reason: Admit from ER (General) Decision to Admit/Date: October 07, 2018 Time/Decision to Admit Time: 17:49 Departure-Patient Inst. Referrals: TOM ISIDRO MD (PCP/Family) Primary Care Physician MICHAEL DOMÍNGUEZ MD October 07, 2018 17:21
[2018-10-07 17:28] LABS: INR 4.5 (0.8-1.4); PROTHROMBIN TIME PATIENT 44.8 SEC (12.2-14.7)
[2018-10-07 17:36] LABS: ALBUMIN 3.6 GM/DL (3.2-4.5); BILIRUBIN,TOTAL 0.4 MG/DL (0.1-1.0); CREATININE SERUM 1.08 MG/DL (0.60-1.30); POTASSIUM 4.1 MMOL/L (3.6-5.0); TOTAL PROTEIN 5.8 GM/DL (6.4-8.2)
[2018-10-07] MEDS ORDERED: NS IV 1000 ML 1,000 ML ONE (17:59)
[2018-10-07] MEDS ORDERED: PANTOPRAZOLE 40 MG (PROTONIX) VIAL IV ONE (18:00)
[2018-10-07] MEDS ORDERED: PANTOPRAZOLE INJECTION 200 MG in NS (IVPB) 100 ML IV SCH (18:00)
[2018-10-07] MEDS ORDERED: NS IV 1000 ML 1,000 ML IV ONE (18:02)
--- OUTSIDE RECORDS SUMMARY | 2018-10-07 18:25 | XMS REPORT | Continuity of Care Document ---
Author Organization Unknown Address Unknown Allergies Active Description Code Type Severity Reaction Onset Reported/Identified Relationship to Patient Clinical Status Yes No Known Drug Allergies [id number] Drug Allergy Unknown N/A 05/21/2007 Medications There [...] CCDS Ot I25.10 ATHSCL HEART DISEASE OF [place] CORONARY 01/17/2018 KINZA DRISCOLL FACC, ALI FACP [...] CCDS Ot I25.10 ATHSCL HEART DISEASE OF [place] CORONARY 02/06/2018 KINZA DRISCOLL FACC, ALI FACP [...] CCDS Ot I25.10 ATHSCL HEART DISEASE OF [place] CORONARY 08/23/2018 KINZA DRISCOLL FACC, ALI FACP [...] CCDS Ot I25.10 ATHSCL HEART DISEASE OF [place] CORONARY 08/28/2018 KINZA DRISCOLL FACC, ALI FACP CCDS Ot Z68.32 BODY MASS INDEX (BMI) 32.0-32.9, ADULT 08/28/2018 KINZA DRISCOLL FACC, CHANCE FACP CCDS Ot Z95.2 PRESENCE OF PROSTHETIC HEART VALVE 08/30/2018 TOM ISIDRO MD Ot I10 ESSENTIAL (PRIMARY) HYPERTENSION 08/30/2018 OTM ISIDRO MD Ot Z48.812 ENCNTR FOR SURGICAL [...] CCDS Ot I25.10 ATHSCL HEART DISEASE OF [place] CORONARY 08/30/2018 KINZA DRISCOLL FACC, ALI FACP CCDS Ot Z68.32 BODY MASS INDEX (BMI) 32.0-32.9, ADULT 08/30/2018 KINZA MD FACC, ALI FACP CCDS Ot Z95.2 PRESENCE OF PROSTHETIC HEART VALVE 08/30/2018 TOM ISIDRO MD Ot E66.9 OBESITY, UNSPECIFIED 08/30/2018 TOM ISIDRO MD Ot E78.5 HYPERLIPIDEMIA, UNSPECIFIED 08/30/2018 TOM ISIDRO MD Ot I10 ESSENTIAL (PRIMARY) HYPERTENSION 08/30/2018 TOM ISIDRO MD Ot I25.10 ATHSCL HEART DISEASE OF [place] CORONARY 08/30/2018 TOM ISIDRO MD Ot K57.30 DVRTCLOS OF LG INT W/O PERFORATION OR AB 08/30/2018 TOM ISIDRO MD Ot Z12.11 ENCOUNTER FOR SCREENING FOR MALIGNANT NE 08/30/2018 TOM ISIDRO MD Ot Z68.34 BODY MASS INDEX (BMI) 34.0-34.9, ADULT 08/30/2018 TOM ISIDRO MD Ot 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 08/30/2018 TOM ISIDRO MD Ot Z79.899 OTHER EXPERIMENTAL ROCKETSLED MECHANIC (CURRENT) DRUG THERAPY 08/30/2018 TOM ISIDRO MD Ot Z95.2 PRESENCE OF PROSTHETIC HEART VALVE 08/30/2018 TOM ISIDRO MD Ot Z98.84 BARIATRIC SURGERY STATUS 09/04/2018 TOM ISIDRO MD Ot E66.9 OBESITY, UNSPECIFIED 09/04/2018 TOM ISIDRO MD Ot E78.5 HYPERLIPIDEMIA, UNSPECIFIED 09/04/2018 TMO ISIDRO MD Ot I10 ESSENTIAL (PRIMARY) HYPERTENSION 09/04/2018 TOM ISIDRO MD Ot I25.10 ATHSCL HEART DISEASE OF [place] CORONARY 09/04/2018 OTM ISIDRO MD Ot K57.30 DVRTCLOS OF LG INT W/O PERFORATION OR AB 09/04/2018 TOM ISIDRO MD Ot Z12.11 ENCOUNTER FOR SCREENING FOR MALIGNANT NE 09/04/2018 TOM ISIDRO MD Ot Z68.34 BODY MASS INDEX (BMI) 34.0-34.9, ADULT 09/04/2018 TOM ISIDRO MD Ot 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 09/04/2018 TOM ISIDRO MD Ot Z79.899 OTHER CARE HOME (CURRENT) DRUG THERAPY 09/04/2018 TOM ISIDRO MD Ot Z95.2 PRESENCE OF PROSTHETIC HEART VALVE 09/04/2018 TOM ISIDRO MD Ot Z98.84 BARIATRIC SURGERY STATUS 09/06/2018 TOM ISIDRO MD Ot E66.9 OBESITY, UNSPECIFIED 09/06/2018 TOM ISIDRO MD Ot E78.5 HYPERLIPIDEMIA, UNSPECIFIED 09/06/2018 TOM ISIDRO MD Ot I10 ESSENTIAL (PRIMARY) HYPERTENSION 09/06/2018 TOM ISIDRO MD Ot I25.10 ATHSCL HEART DISEASE OF [place] CORONARY 09/06/2018 TOM ISIDRO MD Ot K57.30 DVRTCLOS OF LG INT W/O PERFORATION OR AB 09/06/2018 TOM ISIDRO MD Ot Z12.11 ENCOUNTER FOR SCREENING FOR MALIGNANT NE 09/06/2018 TOM ISIDRO MD Ot Z68.34 BODY MASS INDEX (BMI) 34.0-34.9, ADULT 09/06/2018 TOM ISIDRO MD Ot 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 Results There is no data. Encounters ACCT No. Visit Date/Time Discharge Status Pt. Type Provider Facility Loc./Unit Complaint [id number] 08/30/2018 08:01:00 08/30/2018 10:35:00 DIS Outpatient TOM ISIDRO MD [facility] ENDO SCREENING [id number] 08/23/2018 05:47:00 08/23/2018 13:53:00 DIS Outpatient TOM ISIDRO MD [facility] PREOP COLONOSCOPY [id number] 01/15/2018 07:24:00 01/15/2018 23:59:59 CLS Outpatient KINZA DRISCOLL FACCCHANCE FACP CCDS [facility] CARD CHD,DM,HTN,S/P AVR,OTHER OBESITY [id number] 10/22/2017 12:38:00 10/22/2017 23:59:59 CLS Outpatient SKY SEGAL DO [facility] RAD LUMP IN RT BREAST UPPER OUTER QUADRANT [id number] 04/26/2017 13:26:00 04/26/2017 23:59:59 CLS Outpatient TOM ISIDRO MD [facility] CARD HISTORY OF AORTIC VALVE REPLACEMENT [id number] 09/20/2016 13:38:00 09/20/2016 23:59:59 CLS Outpatient TOM ISIDRO MD [facility] CARD F/U AORTIC VALVE REPLACEMENT [id number] 03/18/2015 07:28:00 03/18/2015 23:59:59 CLS Outpatient TOM ISIDRO MD [facility] CARD MECHANICAL AORTIC VALVE, HTN [id number] 11/25/2013 16:35:00 11/25/2013 23:59:59 CLS Outpatient
[2018-10-07] MEDS: NS IV 1000 ML 1,000 ML IV SCH (20:15)
[2018-10-07 20:16] LABS: HEMOGLOBIN 7.8 G/DL (11.5-16.0)
[2018-10-07] MEDS ORDERED: CATHETER FLUSH 10 ML SYR IV PRN (21:30)
[2018-10-07] MEDS: PANTOPRAZOLE DRIP 200 MG/NS 100 ML IV SCH ×2 (21:33)
[2018-10-07] MEDS: CATHETER FLUSH 10 ML SYR IV SCH (21:34)
--- NOTE | 2018-10-07 21:53 | Consultation (Surgery) ---
History of Present Illness History of Present Illness Patient Consulted On(josemanuel/time) 10/07/18 21:50 Date Seen by Provider: October 07, 2018 Time Seen by Provider: 18:40 Allergies and Home Medications Allergies Coded Allergies: No Known Drug Allergies (Verified , 05/21/07) Home Medications Atorvastatin Calcium 40 Mg Tablet, 40 MG PO HS, (Reported) Candesartan/Hydrochlorothiazid 1 Each Tablet, 1 EACH PO DAILY, (Reported) Levothyroxine Sodium 100 Mcg Tablet, 100 MCG PO DAILY, (Reported) Metoprolol Succinate 25 Mg Tab.er.24h, 25 MG PO DAILY, (Reported) Warfarin Sodium 5 Mg Tablet, 5 MG PO SuMoWeFrSa, (Reported) Warfarin Sodium 5 Mg Tablet, 2.5 MG PO TuTh, (Reported) take 1/2 of 5mg tab Past Pinkqfg-Jdnetj-Ftnuec Hx Patient Social History Alcohol Use: Denies Use Recreational Drug Use: No Smoking Status: Never a Smoker Recent Foreign Travel: No Contact w/Someone Who Travel: No Recent Infectious Disease Expo: No Recent Hopitalizations: No Immunizations Up To Date Tetanus Booster (TDap): Unknown PED Vaccines UTD: No Date of Pneumonia Vaccine: Dec 28, 2010 Surgeries History of Surgeries: Yes ( ovarian cyst removal, 2011 aortic valve replaced, gastric bypass) Surgeries: Coronary Stent, Hysterectomy, Valve Replacement Respiratory History of Respiratory Disorde: No Cardiovascular History of Cardiac Disorders: Yes (aortic valve replaced) Cardiac Disorders: Hypertension, Valvular Heart Disease Neurological History of Neurological Disord: No Genitourinary History of Genitourinary Disor: No Gastrointestinal History of Gastrointestinal Di: No Musculoskeletal History of Musculoskeletal Dis: No Endocrine History of Endocrine Disorders: Yes Endocrine Disorders: Hypothyroidsim, Lupus HEENT History of HEENT Disorders: Yes (cataracts removed) Cancer History of Cancer: No Psychosocial History of Psychiatric Problem: No Integumentary History of Skin or Integumenta: No Blood Transfusions History of Blood Disorders: No Family Medical History Significant Family History: No Pertinent Family Hx Physical Exam-General Problems Physical Exam Vital Signs Vital Signs - First Documented 10/07/18 16:38 Temp 97.6 Pulse 81 Resp 18 B/P (MAP) 135/50 (78) Pulse Ox 99 O2 Delivery Room Air Capillary Refill : Less Than 3 Seconds Data Review Labs Laboratory Tests 10/07/18 16:55: White Blood Count 10.5, Red Blood Count 3.00L, Hemoglobin 8.3L, Hematocrit 25L, Mean Corpuscular Volume 85, Mean Corpuscular Hemoglobin 28, Mean Corpuscular Hemoglobin Concent 33, Red Cell Distribution Width 15.1H, Platelet Count 260, Mean Platelet Volume 10.5H, Neutrophils (%) (Auto) 56, Lymphocytes (%) (Auto) 36, Monocytes (%) (Auto) 5, Eosinophils (%) (Auto) 2, Basophils (%) (Auto) 1, Neutrophils # (Auto) 5.9, Lymphocytes # (Auto) 3.8, Monocytes # (Auto) 0.6, Eosinophils # (Auto) 0.2, Basophils # (Auto) 0.1, Prothrombin Time 44.8H, INR Comment 4.5H, Activated Partial Thromboplast Time 36H, Sodium Level 142, Potassium Level 4.1, Chloride Level 108H, Carbon Dioxide Level 19L, Anion Gap 15H, Blood Urea Nitrogen 57H, Creatinine 1.08, Estimat Glomerular Filtration Rate 51, BUN/Creatinine Ratio 53, Glucose Level 103, Calcium Level 9.0, Corrected Calcium 9.3, Total Bilirubin 0.4, Aspartate Amino Transf (AST/SGOT) 20, Alanine Aminotransferase (ALT/SGPT) 25, Alkaline Phosphatase 68, Total Protein 5.8L, Albumin 3.6 10/07/18 20:05: Hemoglobin 7.8L, Hematocrit 24L Assessment/Plan Assessment/Plan Assessment/Plan gi bleed- likely upper melena epigastric abdominal pain supratherapeutic INR reverse coumadin with FFP and transfuse PRBC as needed. Discussed may need EGD to further evaluated Protonix drip NPO follow coags and hgb Clinical Quality Measures DVT/VTE Risk/Contraindication: Risk Factor Score Per Nursin RFS Level Per Nursing on Admit: 4+=Very High STALIN LIZAMA DO October 07, 2018 21:53
[2018-10-07] MEDS ORDERED: RT-ALBUTEROL SULF 2.5 MG/3 ML PRE-MIX VIAL INH PRN (23:30)
[2018-10-08] VITALS (26 sets, daily range): BP systolic 112–147; BP diastolic 49–98
[2018-10-08 00:48] LABS: HEMOGLOBIN 6.4 G/DL (11.5-16.0)
--- NOTE | 2018-10-08 05:31 | Pulmonary Consultation ---
History of Present Illness History of Present Illness Date of Consultation 10/08/18 05:24 Time Seen by Provider: 05:28 Date of Admission History of Present Illness 67yo with hx of cardiac valve replacement and takes Coumadin and ASA at home presented to ED after noticing BRB diarrhea. Pt was also feeling dizzy and SOB with exertion. Denies hx of GIB. No abdominal pain or N/V. PT is currently on Protonix gtt. No hypotension. Allergies and Home Medications Allergies Coded Allergies: No Known Drug Allergies (Verified , 05/21/07) Home Medications Ascorbic Acid 500 Mg Tablet, 500 MG PO DAILY, (Reported) Aspirin 325 Mg Tablet.dr, 325 MG PO DAILY, (Reported) Atorvastatin Calcium 40 Mg Tablet, 40 MG PO HS, (Reported) Candesartan/Hydrochlorothiazid 1 Each Tablet, 1 TAB PO DAILY, (Reported) Cholecalciferol (Vitamin D3) 2,000 Unit Capsule, 2,000 UNIT PO DAILY, (Reported) Levothyroxine Sodium 100 Mcg Tablet, 100 MCG PO DAILY, (Reported) Metoprolol Succinate 25 Mg Tab.er.24h, 25 MG PO DAILY, (Reported) Multivit-Min/FA/Lycopene/Lut 1 Each Tablet, 1 TAB PO DAILY, (Reported) Warfarin Sodium 5 Mg Tablet, 7.5 MG PO DAILY, (Reported) TAKES 1 & 1/2 (5MG) TABLET [Iron 27MG] , 27 MG PO DAILY, (Reported) Past Icrmbik-Aajvvl-Qgzgmc Hx Past Med/Social Hx: Reviewed Nursing Past Med/Soc Hx Patient Social History Alcohol Use: Denies Use Recreational Drug Use: No Smoking Status: Never a Smoker Recent Foreign Travel: No Contact w/Someone Who Travel: No Recent Infectious Disease Expo: No Recent Hopitalizations: No Immunizations Up To Date Tetanus Booster (TDap): Unknown PED Vaccines UTD: No Date of Pneumonia Vaccine: May 14, 2018 Past Medical History Surgeries: Yes ( ovarian cyst removal, 2011 aortic valve replaced, gastric bypass) Coronary Stent, Hysterectomy, Valve Replacement Respiratory: No Cardiac: Yes (aortic valve replaced) Hypertension, Valvular Heart Disease Neurological: No Genitourinary: No Gastrointestinal: No Musculoskeletal: No Endocrine: Yes Hypothyroidsim, Lupus HEENT: Yes (cataracts removed) Cancer: No Psychosocial: No Integumentary: No Blood Disorders: No Family Medical History Reviewed Nursing Family Hx No Pertinent Family Hx Review of Systems Time Seen by Provider: 05:31 Constitutional: Sweats, Weakness, Malaise Eyes: Conjunctivae inflammation ENT: Nose discharge, Nose congestion Respiratory: Shortness of breath, SOB with excertion Cardiovascular: Palpitations, Paroxysmal Noc. Dyspnea Neurological: Weakness Sepsis Event Evaluation Height, Weight, BMI Height: 4'11.00" Weight: 198lbs. 1.0oz. 89.634394lq; 40.0 BMI Method:Stated Exam Exam Vital Signs Date Time Temp Pulse Resp B/P (MAP) Pulse Ox O2 Delivery O2 Flow Rate FiO2 10/08/18 05:00 77 15 130/68 (88) Room Air 10/08/18 04:03 98.4 73 16 134/58 99 Room Air 10/08/18 04:00 97 11 134/58 (83) 97 Room Air 10/08/18 04:00 99 Room Air 10/08/18 03:45 98.5 74 18 127/72 100 Room Air 10/08/18 03:33 98.5 79 16 124/58 99 Room Air 10/08/18 03:00 73 26 128/64 (85) 97 Room Air 10/08/18 02:00 77 13 119/55 (76) 98 Room Air 10/08/18 01:25 97.6 78 16 116/50 100 Room Air 10/08/18 01:10 98.3 80 16 122/49 98 Room Air 10/08/18 01:00 82 10/08/18 01:00 82 14 122/49 (73) 97 Room Air 10/08/18 00:56 97.5 82 18 112/54 100 Room Air 10/08/18 00:00 98.3 10/08/18 00:00 100 Room Air 10/08/18 00:00 78 16 114/54 (74) 97 Room Air 10/07/18 23:00 73 17 110/47 (68) 97 Room Air 10/07/18 22:57 71 100 21 10/07/18 22:50 97.7 75 16 108/44 100 Room Air 10/07/18 22:32 98.7 77 16 121/55 99 Room Air 10/07/18 22:04 98.0 77 16 113/57 99 Room Air 10/07/18 22:00 76 19 113/57 (75) 98 Room Air 10/07/18 21:00 79 20 112/41 (64) 97 Room Air 10/07/18 20:31 97.7 71 16 144/57 100 Room Air 10/07/18 20:13 97.2 76 16 122/60 99 Room Air 10/07/18 20:00 75 25 122/60 (80) 99 Room Air 10/07/18 19:59 97.2 10/07/18 19:48 80 13 128/69 (88) 100 Room Air 10/07/18 19:30 74 15 123/62 (82) 100 Room Air 10/07/18 19:30 99 Room Air 10/07/18 19:15 73 28 130/64 (86) 100 Room Air 10/07/18 19:00 77 27 123/65 (84) 100 Room Air 10/07/18 19:00 77 10/07/18 18:55 90 34 158/61 (93) 95 Room Air 10/07/18 18:35 70 20 123/47 (72) 98 10/07/18 16:38 97.6 81 18 135/50 (78) 99 Room Air I & O 10/08/18 07:00 Intake Total 1000 ml Output Total 650 ml Balance 350 ml Height & Weight Height: 4'11.00" Weight: 198lbs. 1.0oz. 89.283151tw; 40.0 BMI Method:Stated General Appearance: No Apparent Distress, WD/WN HEENT: PERRL/EOMI, Normal ENT Inspection, Pharynx Normal Neck: Full Range of Motion, Normal Inspection, Non Tender, Supple Respiratory: Chest Non Tender, Lungs Clear, Normal Breath Sounds, No Accessory Muscle Use, No Respiratory Distress Cardiovascular: Regular Rate, Rhythm, No Edema, No JVD Capillary Refill: Less Than 3 Seconds Gastrointestinal: non tender, soft Extremity: Normal Capillary Refill, Normal Inspection Neurologic/Psychiatric: Alert, No Motor/Sensory Deficits Skin: Normal Color, Warm/Dry Lymphatic: No Adenopathy Results Lab Laboratory Tests 10/07/18 16:55 10/07/18 20:05 10/08/18 00:35 Assessment/Plan Assessment/Plan Acute GIB -2 units of FFP and 2 units of PRBC -Dr. Shultz following -Monitor serial H&H - Protonix gtt Coumadin coagulopathy with hx of valvular replacement -2 units of FFP and PRBC now -Monitor MARC TAM DO October 08, 2018 05:31
[2018-10-08] MEDS: CATHETER FLUSH 10 ML SYR IV SCH ×3 (06:14→21:58)
--- NOTE | 2018-10-08 07:52 | Diagnostic Imaging Report ---
INDICATION: GI bleed. Exam compared 11/20/2011. FINDINGS: Sternal wires midline. Lungs are clear. No effusion or pneumothorax. IMPRESSION: No acute abnormality. Dictated by: Dictated on workstation # [id number]
[2018-10-08 08:27] LABS: BASOPHILS % (AUTO) 1 % (0-10); EOSINOPHILS # (AUTO) 0.2 10^3/uL (0.0-0.3); EOSINOPHILS % (AUTO) 2 % (0-10); HEMATOCRIT 27 % (35-52); HEMOGLOBIN 8.9 G/DL (11.5-16.0); LYMPHOCYTES # (AUTO) 1.9 X 10^3 (1.0-4.0); LYMPHOCYTES % (AUTO) 27 % (12-44); MEAN CORPUSCULAR HEMOGLOBIN 29 PG (25-34); MEAN CORPUSCULAR HGB CONC 34 G/DL (32-36); MEAN CORPUSCULAR VOLUME 86 FL (80-99); MONOCYTES # (AUTO) 0.6 X 10^3 (0.0-1.0); MONOCYTES % (AUTO) 8 % (0-12); NEUTROPHILS # (AUTO) 4.2 X 10^3 (1.8-7.8); NEUTROPHILS % (AUTO) 61 % (42-75); PLATELET COUNT 181 10^3/uL (130-400); WHITE BLOOD COUNT 6.8 10^3/uL (4.3-11.0)
[2018-10-08 08:28] LABS: ALANINE AMINOTRANSFERASE 23 U/L (0-55); ALBUMIN 3.3 GM/DL (3.2-4.5); ALKALINE PHOSPHATASE 64 U/L (40-136); BILIRUBIN,TOTAL 1.3 MG/DL (0.1-1.0); BUN/CREATININE RATIO 37; CALCIUM 8.8 MG/DL (8.5-10.1); CARBON DIOXIDE 22 MMOL/L (21-32); CHLORIDE 113 MMOL/L (98-107); CREATININE SERUM 0.86 MG/DL (0.60-1.30); GFR ESTIMATED > 60; GLUCOSE 84 MG/DL (70-105); MAGNESIUM 1.9 MG/DL (1.8-2.4); PHOSPHORUS 3.3 MG/DL (2.3-4.7); POTASSIUM 4.3 MMOL/L (3.6-5.0); SODIUM 142 MMOL/L (135-145); TOTAL PROTEIN 5.4 GM/DL (6.4-8.2)
[2018-10-08 08:36] LABS: PROTHROMBIN TIME PATIENT 23.9 SEC (12.2-14.7)
--- NOTE | 2018-10-08 09:40 | NUR ---
DR LIZAMA CALLED NEW ORDERS RECEIVED TO GIVE 1 UNIT FFP AND OBTAIN CONSENT FOR EGD.
--- NOTE | 2018-10-08 10:53 | NUR ---
PT TO ENDOSCOPY VIA WC ACCOMPANIED BY ENDO STAFF. FFP INFUSING, UNABLE TO SCAN UNIT VERIFIED BY THIS RN AND Teddy JOSHI RN.
[2018-10-08] MEDS ORDERED: PROPOFOL INJECTION 50 ML IV ONE (11:01)
[2018-10-08] MEDS ORDERED: MIDAZOLAM 2 MG/2 ML (VERSED) VIAL ONE (11:01)
--- NOTE | 2018-10-08 11:09 | History & Physical-Hospitalist ---
History of Present Illness HPI/Chief Complaint The patient is a 67-year-old white female who reported no abdominal symptoms until she was awoken from sleep at 3 a.m. on the 26 of this month with the urge to defecate. When she when she noted dark red blood in the stool she never had any bright red blood and had undergone colonoscopy within the last several months by myself which time she had some diverticular disease and as I recall one small inconsequential polyp with no hemorrhoids. She had a subsequent stool that revealed dark red blood as well where she felt extremely weak and subsequently presented to the emergency room where hemoglobin was in the 8 range with hemodynamic instability prior to receiving IV fluids. She has a past history of aortic valve replacement for aortic stenosis many years ago and her INR was noted to be 4.5. She has a history of coronary disease and was on a baby aspirin as well both medications long-standing. She has been under increased stress caring for her mother who is on hospice and living at home with her and reports that her appetite has been suboptimal secondary to stress. She denied any indigestion symptoms dysphasia or heartburn or abdominal pain. She has had no past history of known peptic ulcer disease but does have a past history of gastric bypass I believe Daria-en-Y for weight loss. Date Seen 10/08/18 Time Seen by a Provider: 08:30 Attending Physician Rich Isidro MD PCP Rich Isidro MD Referring Physician Date of Admission October 07, 2018 at 17:49 Home Medications & Allergies Home Medications Reviewed patient Home Medication Reconciliation performed by pharmacy medication reconciliations laser technician and/or nursing. Patients Allergies have been reviewed. Allergies Allergies Coded Allergies No Known Drug Allergies (Verified05/21/07) Past Hwkgoxj-Hrdzix-Phtzzs Hx Past Med/Social Hx: Reviewed Nursing Past Med/Soc Hx Patient Social History Alcohol Use: Denies Use Recreational Drug Use: No Smoking Status: Never a Smoker Recent Foreign Travel: No Contact w/other who traveled: No Recent Hopitalizations: No Recent Infectious Disease Expo: No Immunizations Up To Date Tetanus Booster (TDap): Unknown Pediatric: No Date of Pneumonia Vaccine: May 14, 2018 Past Medical History Surgeries: Coronary Stent, Hysterectomy, Valve Replacement Cardiac: Hypertension, Valvular Heart Disease Endocrine: Hypothyroidsim, Lupus History of Blood Disorders: No Family History Reviewed Nursing Family Hx No Pertinent Family Hx Review of Systems Constitutional: weakness Respiratory: No cough; dyspnea on exertion; No hemoptysis, No orthopnea, No phlegm, No short of breath, No stridor, No wheezing, No other Cardiovascular: No no symptoms reported, No see HPI, No chest pain, No edema, No Hx of Intervention, No palpitations, No syncope; vascular heart diseas; No other Gastrointestinal: see HPI, melena Physical Exam Physical Exam Vital Signs Vital Signs - First Documented 10/07/18 10/07/18 10/08/18 16:38 22:57 11:30 Temp 97.6 Pulse 81 Resp 18 B/P (MAP) 135/50 (78) Pulse Ox 99 O2 Delivery Room Air O2 Flow Rate 10 FiO2 21 Capillary Refill : Less Than 3 Seconds Height, Weight, BMI Height: 4'11.00" Weight: 200lbs. 0.0oz. 90.269346qs; 40.0 BMI Method:Stated General Appearance: Mild Distress, Obese HEENT: Pharynx Normal, Pale Conjunctivae (L), Pale Conjunctivae (R) Respiratory: Chest Non Tender, Lungs Clear, Normal Breath Sounds, No Accessory Muscle Use, No Respiratory Distress Cardiovascular: Regular Rate, Rhythm, No Edema, No Gallop, No JVD, No Murmur, Normal Peripheral Pulses Gastrointestinal: Normal Bowel Sounds, No Organomegaly, No Pulsatile Mass, Non Tender, Soft Rectal: Heme Positive Stool, Other (Very dark red colored stool reported) Extremity: Normal Capillary Refill, Normal Inspection, Normal Range of Motion, Non Tender, No Calf Tenderness, No Pedal Edema Neurologic/Psychiatric: Alert, Oriented x3 Results Results/Procedures Labs Patient resulted labs reviewed. Assessment/Plan Admission Diagnosis 1. GI bleed with anemia aggravated by over anticoagulation the patient is receiving 2 units of packed cells as well as 2 units of FFP. We'll try to hold off giving vitamin K as she will need to be back on Coumadin for aortic valve. Complex medical management. Favor an upper tract source. Dr. Shultz has been consult did and will be taking the patient to EGD later today. Proton pump inhibitor drip in the form of pantoprazole is been initiated emergency room will continue. Currently the patient is hematologically stable feeling better after receiving blood products with no further stools since her admission. 2. Aortic valve replacement many years ago for aortic stenosis holding Coumadin secondary to number 1 as well as aspirin and will likely not resume aspirin on discharge. 3. Long-standing history of obesity with past gastric bypass for weight loss. 4. History of coronary artery disease no evidence for acute coronary syndrome. Admission Status: Inpatient Order (span 2 midnights) Reason for Inpatient Admission: See admission diagnosis Clinical Quality Measures DVT/VTE Risk/Contraindication: Risk Factor Score Per Nursin RFS Level Per Nursing on Admit: 4+=Very High RICH ISIDRO MD October 08, 2018 11:09
[2018-10-08] MEDS ORDERED: LACTATED RINGERS 1,000 ML IV ONE (11:11)
[2018-10-08] MEDS ORDERED: ASPI325T32 PO (11:14)
[2018-10-08] MEDS ORDERED: CHOL20003 PO (11:14)
[2018-10-08] MEDS ORDERED: PRD20T (11:14)
[2018-10-08] MEDS ORDERED: ASCO500T6 PO (11:14)
[2018-10-08] MEDS ORDERED: MULT-1029 PO (11:14)
[2018-10-08] MEDS ORDERED: IRON 27MG PO (11:14)
--- NOTE | 2018-10-08 11:15 | NUR ---
PATIENT OUT OF HER ROOM AT THIS TIME BUT HAD A DETAILED MEDICATION LIST ON HER TABLE. I UPDATED THE MED REC WITH THAT LIST. I COMPARED IT WITH THE EXT MED HX TO VERIFY THE PRESCRIPTION MEDICATIONS.
--- NOTE | 2018-10-08 11:17 | Progress Note ---
Subjective Date Seen by a Provider: October 08, 2018 Time Seen by a Provider: 11:16 Subjective/Events-last exam drop in hgb, inr decreased still with some dizziness. transfused prbc and ffp and still without appropriate resonse. No new complaints. Review of Systems General: No Chills, No Night Sweats, No Fatigue, No Malaise HEENT: No Head Aches, No Eye Pain, No Ear Pain, No Dysphasia, No Sinus Congestion, No Post Nasal Drip, No Sore Throat Pulmonary: No Dyspnea, No Cough, No Pleuritic Chest Pain Cardiovascular: No: Chest Pain, Palpitations, Orthopnea, Paroxysmal Noc. Dyspnea, Edema, Lt Headedness Gastrointestinal: No: Nausea, Vomiting, Abdominal Pain, Diarrhea, Constipation, Melena, Hematochezia Genitourinary: No Dysuria, No Frequency, No Incontinence, No Hematuria, No Retention Musculoskeletal: No: other, neck pain, shoulder pain, arm pain, back pain, hand pain, leg pain, foot pain Neurological: No: Weakness, Numbness, Incoordination, Change in speech, Confusion, Seizures, Other Objective Exam Vital Signs Date Time Temp Pulse Resp B/P (MAP) Pulse Ox O2 Delivery O2 Flow Rate FiO2 10/08/18 10:49 97.0 140/74 10/08/18 10:00 78 21 115/87 (96) 97 Room Air 10/08/18 09:00 82 15 129/69 (89) Room Air 10/08/18 08:55 95 Room Air 10/08/18 08:15 98 Room Air 10/08/18 08:03 97.5 10/08/18 08:00 78 15 132/68 (89) Room Air 10/08/18 07:00 75 13 134/60 (84) Room Air 10/08/18 07:00 79 10/08/18 06:00 76 13 132/61 (84) Room Air 10/08/18 05:44 98.8 75 16 145/65 99 Room Air 10/08/18 05:00 77 15 130/68 (88) Room Air 10/08/18 04:03 98.4 73 16 134/58 99 Room Air 10/08/18 04:00 98.8 10/08/18 04:00 97 11 134/58 (83) 97 Room Air 10/08/18 04:00 99 Room Air 10/08/18 03:45 98.5 74 18 127/72 100 Room Air 10/08/18 03:33 98.5 79 16 124/58 99 Room Air 10/08/18 03:00 73 26 128/64 (85) 97 Room Air 10/08/18 02:00 77 13 119/55 (76) 98 Room Air 10/08/18 01:25 97.6 78 16 116/50 100 Room Air 10/08/18 01:10 98.3 80 16 122/49 98 Room Air 10/08/18 01:00 82 10/08/18 01:00 82 14 122/49 (73) 97 Room Air 10/08/18 00:56 97.5 82 18 112/54 100 Room Air 10/08/18 00:00 98.3 10/08/18 00:00 100 Room Air 10/08/18 00:00 78 16 114/54 (74) 97 Room Air 10/07/18 23:00 73 17 110/47 (68) 97 Room Air 10/07/18 22:57 71 100 21 10/07/18 22:50 97.7 75 16 108/44 100 Room Air 10/07/18 22:32 98.7 77 16 121/55 99 Room Air 10/07/18 22:04 98.0 77 16 113/57 99 Room Air 10/07/18 22:00 76 19 113/57 (75) 98 Room Air 10/07/18 21:00 79 20 112/41 (64) 97 Room Air 10/07/18 20:31 97.7 71 16 144/57 100 Room Air 10/07/18 20:13 97.2 76 16 122/60 99 Room Air 10/07/18 20:00 75 25 122/60 (80) 99 Room Air 10/07/18 19:59 97.2 10/07/18 19:48 80 13 128/69 (88) 100 Room Air 10/07/18 19:30 74 15 123/62 (82) 100 Room Air 10/07/18 19:30 99 Room Air 10/07/18 19:15 73 28 130/64 (86) 100 Room Air 10/07/18 19:00 77 27 123/65 (84) 100 Room Air 10/07/18 19:00 77 10/07/18 18:55 90 34 158/61 (93) 95 Room Air 10/07/18 18:35 70 20 123/47 (72) 98 10/07/18 16:38 97.6 81 18 135/50 (78) 99 Room Air I & O 10/08/18 07:00 Intake Total 1000 ml Output Total 1500 ml Balance -500 ml Capillary Refill : Less Than 3 Seconds General Appearance: No Apparent Distress, WD/WN HEENT: PERRL/EOMI, Normal ENT Inspection, Pharynx Normal Neck: Full Range of Motion, Normal Inspection, Non Tender, Supple Respiratory: Chest Non Tender, No Accessory Muscle Use, No Respiratory Distress Cardiovascular: Regular Rate, Rhythm, No JVD Gastrointestinal: non tender, soft, tenderness (minimal epigastric) Extremity: Normal Capillary Refill, Normal Inspection Neurologic/Psychiatric: Alert, Oriented x3, No Motor/Sensory Deficits, Normal Mood/Affect, 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 Norm as Tested Skin: Normal Color, Warm/Dry Lymphatic: No Adenopathy Results Lab Laboratory Tests 10/07/18 16:55: White Blood Count 10.5, Red Blood Count 3.00L, Hemoglobin 8.3L, Hematocrit 25L, Mean Corpuscular Volume 85, Mean Corpuscular Hemoglobin 28, Mean Corpuscular Hemoglobin Concent 33, Red Cell Distribution Width 15.1H, Platelet Count 260, Mean Platelet Volume 10.5H, Neutrophils (%) (Auto) 56, Lymphocytes (%) (Auto) 36, Monocytes (%) (Auto) 5, Eosinophils (%) (Auto) 2, Basophils (%) (Auto) 1, Neutrophils # (Auto) 5.9, Lymphocytes # (Auto) 3.8, Monocytes # (Auto) 0.6, Eosinophils # (Auto) 0.2, Basophils # (Auto) 0.1, Prothrombin Time 44.8H, INR Comment 4.5H, Activated Partial Thromboplast Time 36H, Sodium Level 142, Potassium Level 4.1, Chloride Level 108H, Carbon Dioxide Level 19L, Anion Gap 15H, Blood Urea Nitrogen 57H, Creatinine 1.08, Estimat Glomerular Filtration Rate 51, BUN/Creatinine Ratio 53, Glucose Level 103, Calcium Level 9.0, Corrected Calcium 9.3, Total Bilirubin 0.4, Aspartate Amino Transf (AST/SGOT) 20, Alanine Aminotransferase (ALT/SGPT) 25, Alkaline Phosphatase 68, Total Protein 5.8L, Albumin 3.6 10/07/18 20:05: Hemoglobin 7.8L, Hematocrit 24L 10/08/18 00:35: Hemoglobin 6.4*L, Hematocrit 20*L 10/08/18 07:50: White Blood Count 6.8, Red Blood Count 3.08L, Hemoglobin 8.9#L, Hematocrit 27L, Mean Corpuscular Volume 86, Mean Corpuscular Hemoglobin 29, Mean Corpuscular Hemoglobin Concent 34, Red Cell Distribution Width 16.0H, Platelet Count 181, Mean Platelet Volume 10.0, Neutrophils (%) (Auto) 61, Lymphocytes (%) (Auto) 27, Monocytes (%) (Auto) 8, Eosinophils (%) (Auto) 2, Basophils (%) (Auto) 1, Neutrophils # (Auto) 4.2, Lymphocytes # (Auto) 1.9, Monocytes # (Auto) 0.6, Eosinophils # (Auto) 0.2, Basophils # (Auto) 0.0, Prothrombin Time 23.9H, INR Comment 2.0H, Activated Partial Thromboplast Time 29, Sodium Level 142, Potassium Level 4.3, Chloride Level 113H, Carbon Dioxide Level 22, Anion Gap 7, Blood Urea Nitrogen 32H, Creatinine 0.86, Estimat Glomerular Filtration Rate > 60, BUN/Creatinine Ratio 37, Glucose Level 84, Calcium Level 8.8, Corrected Calcium 9.4, Total Bilirubin 1.3H, Aspartate Amino Transf (AST/SGOT) 23, Alanine Aminotransferase (ALT/SGPT) 23, Alkaline Phosphatase 64, Total Protein 5.4L, Albumin 3.3, Phosphorus Level 3.3, Magnesium Level 1.9 Assessment/Plan Assessment/Plan Assessment/Plan gi bleed- likely upper melena epigastric abdominal pain supratherapeutic INR History of gastric bypass reverse coumadin with FFP and transfuse PRBC as needed. Discussed risks and benefits of EGJ to further evaluate and plan today Protonix drip NPO follow coags and hgb Clinical Quality Measures DVT/VTE Risk/Contraindication: Risk Factor Score Per Nursin RFS Level Per Nursing on Admit: 4+=Very High STALIN LIZAMA DO October 08, 2018 11:17
[2018-10-08 12:42] LABS: HEMOGLOBIN 9.2 G/DL (11.5-16.0)
--- NOTE | 2018-10-08 15:26 | OPERATIVE REPORT ---
DATE OF SERVICE: 10/08/2018 PREOPERATIVE DIAGNOSIS: Gastrointestinal bleed, likely upper. POSTOPERATIVE DIAGNOSIS: Ulceration at the gastrojejunal anastomosis. PROCEDURE PERFORMED: Esophagogastrojejunoscopy with biopsy. SURGEON: Stalin Shultz DO. ANESTHESIA: Per KNOWLEDGE MANAGER. ESTIMATED BLOOD LOSS: None. COMPLICATIONS: None. INDICATIONS: The patient is a 67-year-old female with a history of gastric bypass. She was admitted for GI bleed. She understands risks and benefits of procedure and wished to proceed with procedure. Consent was signed in the chart. DESCRIPTION OF PROCEDURE: The patient was taken to the endoscopy suite, placed in left lower recumbent position. Timeout was performed. Scope was inserted in mouth, down the esophagus and into the stomach and then down the jejunal limb. There were no polyps, masses or ulcerations in the jejunum. Scope was slowly retracted back and the gastric pouch was insufflated at the gastrojejunal anastomosis, ulcerations present. No active bleeding present. Scope was slowly retracted back and then a biopsy of the gastric pouch was obtained for H. pylori. No other pathology was noted. Scope was then slowly retracted back to the distal esophagus, which had normal appearance. Scope was slowly retracted back to completely remove, noting no other pathology. RECOMMENDATIONS: The patient recommend to follow up EGD in 6 weeks to reevaluate. Continue with medical management. Job ID: [id number] DocumentID: [id number] Dictated Date: 10/08/2018 11:35:34 Dependency Case Manager Date: 10/08/2018 15:25:35 Dictated By: STALIN SHULTZ DO
[2018-10-08] MEDS: PANTOPRAZOLE DRIP 200 MG/NS 100 ML IV SCH ×2 (16:20)
[2018-10-08] MEDS: NS IV 1000 ML 1,000 ML IV SCH (16:21)
--- NOTE | 2018-10-08 18:12 | NUR ---
PT REQUESTING MELATONIN AT BEDTIME, DR LIZAMA CALLED ORDER RECEIVED AND REPEATED BACK.
[2018-10-08] MEDS ORDERED: MELATONIN 3 MG TABLET PO SCH (21:00)
[2018-10-09] VITALS (10 sets, daily range): BP systolic 104–166; BP diastolic 50–85
[2018-10-09] MEDS: NS IV 1000 ML 1,000 ML IV SCH
[2018-10-09 03:37] LABS: BASOPHILS % (AUTO) 1 % (0-10); EOSINOPHILS # (AUTO) 0.3 10^3/uL (0.0-0.3); EOSINOPHILS % (AUTO) 4 % (0-10); HEMATOCRIT 28 % (35-52); HEMOGLOBIN 9.2 G/DL (11.5-16.0); LYMPHOCYTES # (AUTO) 1.9 X 10^3 (1.0-4.0); LYMPHOCYTES % (AUTO) 28 % (12-44); MEAN CORPUSCULAR HEMOGLOBIN 28 PG (25-34); MEAN CORPUSCULAR HGB CONC 33 G/DL (32-36); MEAN CORPUSCULAR VOLUME 87 FL (80-99); MEAN PLATELET VOLUME 9.7 FL (7.4-10.4); MONOCYTES # (AUTO) 0.5 X 10^3 (0.0-1.0); MONOCYTES % (AUTO) 8 % (0-12); NEUTROPHILS # (AUTO) 4.3 X 10^3 (1.8-7.8); NEUTROPHILS % (AUTO) 61 % (42-75); PLATELET COUNT 199 10^3/uL (130-400); RED CELL DISTRIBUTION WIDTH 16.1 % (10.0-14.5)
[2018-10-09 04:03] LABS: BUN/CREATININE RATIO 25; CALCIUM 8.9 MG/DL (8.5-10.1); CARBON DIOXIDE 21 MMOL/L (21-32); CHLORIDE 112 MMOL/L (98-107); CREATININE SERUM 0.83 MG/DL (0.60-1.30); GFR ESTIMATED > 60; GLUCOSE 81 MG/DL (70-105); MAGNESIUM 1.8 MG/DL (1.8-2.4); PHOSPHORUS 3.7 MG/DL (2.3-4.7); POTASSIUM 4.1 MMOL/L (3.6-5.0); SODIUM 145 MMOL/L (135-145)
--- NOTE | 2018-10-09 05:19 | Pulmonary Progress Note ---
Subjective Time Seen by a Provider: 05:17 Subjective/Events-last exam Hb is stable post EGD Sepsis Event Evaluation Height, Weight, BMI Height: 4'11.00" Weight: 200lbs. 0.0oz. 90.983037gs; 40.0 BMI Method:Stated Exam Exam Vital Signs Date Time Temp Pulse Resp B/P (MAP) Pulse Ox O2 Delivery O2 Flow Rate FiO2 10/09/18 04:00 98 Room Air 10/09/18 04:00 98.1 10/09/18 03:12 68 14 147/69 (95) 96 Room Air 10/09/18 02:00 66 14 104/53 (70) 94 Room Air 10/09/18 01:00 72 16 130/50 (76) 91 Room Air 10/09/18 01:00 72 10/09/18 00:01 98.3 10/09/18 00:00 80 13 157/78 (104) 96 Room Air 10/08/18 23:59 98 Room Air 10/08/18 23:00 68 17 147/98 (114) 98 Room Air 10/08/18 22:00 78 24 145/74 (97) 97 Room Air 10/08/18 21:00 75 19 146/68 (94) 97 Room Air 10/08/18 20:00 98.0 10/08/18 20:00 98 Room Air 10/08/18 20:00 76 15 139/63 (88) 95 Room Air 10/08/18 19:14 81 10/08/18 19:00 84 13 119/95 (103) 97 Room Air 10/08/18 18:35 98 Room Air 10/08/18 18:00 73 15 94 Room Air 10/08/18 17:00 99 15 99 Room Air 10/08/18 16:29 97 Room Air 10/08/18 16:00 98.8 10/08/18 15:00 78 21 100 Room Air 10/08/18 14:00 76 18 140/60 (86) 100 Room Air 10/08/18 13:00 75 17 Room Air 10/08/18 12:53 93 10/08/18 12:15 98 Room Air 10/08/18 12:00 76 18 140/60 (86) 100 Room Air 10/08/18 12:00 97.6 10/08/18 11:45 80 18 95 Room Air 10/08/18 11:40 78 18 95 Room Air 10/08/18 11:35 77 18 95 Room Air 10/08/18 11:30 76 18 98 OxyMask 10 10/08/18 10:49 97.0 140/74 10/08/18 10:00 78 21 115/87 (96) 97 Room Air 10/08/18 09:00 82 15 129/69 (89) Room Air 10/08/18 08:55 95 Room Air 10/08/18 08:15 98 Room Air 10/08/18 08:03 97.5 10/08/18 08:00 78 15 132/68 (89) Room Air 10/08/18 07:00 75 13 134/60 (84) Room Air 10/08/18 07:00 79 10/08/18 06:00 76 13 132/61 (84) Room Air 10/08/18 05:44 98.8 75 16 145/65 99 Room Air I & O 10/09/18 07:00 Intake Total 1795 ml Output Total 2850 ml Balance -1055 ml Height & Weight Height: 4'11.00" Weight: 200lbs. 0.0oz. 90.159376ou; 40.0 BMI Method:Stated General Appearance: No Apparent Distress, WD/WN HEENT: PERRL/EOMI, Normal ENT Inspection, Pharynx Normal Neck: Full Range of Motion, Normal Inspection, Non Tender, Supple Respiratory: Chest Non Tender, No Accessory Muscle Use, No Respiratory Distress Cardiovascular: Regular Rate, Rhythm, No JVD Capillary Refill: Less Than 3 Seconds Gastrointestinal: non tender, soft, tenderness (minimal epigastric) Extremity: Normal Capillary Refill, Normal Inspection Neurologic/Psychiatric: Alert, Oriented x3, No Motor/Sensory Deficits, Normal Mood/Affect, podiatrist assistant II-XII Norm as Tested Skin: Normal Color, Warm/Dry Lymphatic: No Adenopathy Results Lab Laboratory Tests 10/07/18 16:55 10/07/18 20:05 10/08/18 00:35 10/08/18 07:50 10/08/18 12:05 10/08/18 16:00 10/09/18 03:05 Assessment/Plan Assessment/Plan Acute GIB S/p EGD no active bleeding/bx taken -s/p transfusions -Dr. Shultz following -Monitor serial H&H - Protonix gtt - change to protonix 40 mg IV BID Gastric/duodenal ulcer Coumadin coagulopathy with hx of valvular replacement -2 units of FFP and PRBC now -Monitor I am going to transfer pt to 4th floor. I am going to sign off please call with any questions or concerns. MARC TAM DO October 09, 2018 05:19
[2018-10-09] MEDS: CATHETER FLUSH 10 ML SYR IV SCH (05:41)
--- NOTE | 2018-10-09 07:53 | Diagnostic Imaging Report ---
INDICATION: Followup GI bleed. COMPARISON: 10/08/2018 FINDINGS: Single frontal view of the chest demonstrates normal heart size and pulmonary vascularity. Sternotomy wires are noted. The lungs show low inspiratory volumes, but are otherwise clear. No large pleural effusion or pneumothorax is seen. The visualized osseous structures show no acute abnormalities. IMPRESSION: 1. Low lung volumes, but no evidence of failure or focal infiltrate. Dictated by: Dictated on workstation # [id number]
[2018-10-09] MEDS ORDERED: PANT40TA3 PO (08:23)
[2018-10-09] MEDS ORDERED: PANTOPRAZOLE 40 MG (PROTONIX) VIAL IV SCH (09:00)
--- NOTE | 2018-10-09 10:43 | Progress Note ---
Subjective Date Seen by a Provider: October 09, 2018 Time Seen by a Provider: 08:04 Subjective/Events-last exam Patient doing well. Tolerating liquids. Denies n/v. No epigastric abdominal pain. Hgb minimal drop. Wanting to go home. Objective Exam Vital Signs Date Time Temp Pulse Resp B/P (MAP) Pulse Ox O2 Delivery O2 Flow Rate FiO2 10/09/18 10:00 10/09/18 09:00 73 13 156/77 (103) 94 Room Air 10/09/18 08:00 78 23 166/85 (112) 98 Room Air 10/09/18 08:00 98 Room Air 10/09/18 07:51 98 Room Air 10/09/18 07:00 77 12 159/85 (109) 98 Room Air 10/09/18 07:00 71 10/09/18 06:00 69 11 150/66 (94) 95 Room Air 10/09/18 05:00 67 14 132/71 (91) Room Air 10/09/18 04:00 98 Room Air 10/09/18 04:00 98.1 10/09/18 04:00 77 20 153/80 (104) 98 Room Air 10/09/18 03:12 68 14 147/69 (95) 96 Room Air 10/09/18 02:00 66 14 104/53 (70) 94 Room Air 10/09/18 01:00 72 16 130/50 (76) 91 Room Air 10/09/18 01:00 72 10/09/18 00:01 98.3 10/09/18 00:00 80 13 157/78 (104) 96 Room Air 10/08/18 23:59 98 Room Air 10/08/18 23:00 68 17 147/98 (114) 98 Room Air 10/08/18 22:00 78 24 145/74 (97) 97 Room Air 10/08/18 21:00 75 19 146/68 (94) 97 Room Air 10/08/18 20:00 98.0 10/08/18 20:00 98 Room Air 10/08/18 20:00 76 15 139/63 (88) 95 Room Air 10/08/18 19:14 81 10/08/18 19:00 84 13 119/95 (103) 97 Room Air 10/08/18 18:35 98 Room Air 10/08/18 18:00 73 15 94 Room Air 10/08/18 17:00 99 15 99 Room Air 10/08/18 16:29 97 Room Air 10/08/18 16:00 98.8 10/08/18 15:00 78 21 100 Room Air 10/08/18 14:00 76 18 140/60 (86) 100 Room Air 10/08/18 13:00 75 17 Room Air 10/08/18 12:53 93 10/08/18 12:15 98 Room Air 10/08/18 12:00 76 18 140/60 (86) 100 Room Air 10/08/18 12:00 97.6 10/08/18 11:45 80 18 95 Room Air 10/08/18 11:40 78 18 95 Room Air 10/08/18 11:35 77 18 95 Room Air 10/08/18 11:30 76 18 98 OxyMask 10 10/08/18 10:49 97.0 140/74 I & O 10/09/18 07:00 Intake Total 3095 ml Output Total 3300 ml Balance -205 ml Capillary Refill : Less Than 3 Seconds General Appearance: No Apparent Distress, WD/WN HEENT: PERRL/EOMI, Normal ENT Inspection, Pharynx Normal Neck: Full Range of Motion, Normal Inspection, Non Tender, Supple Respiratory: Chest Non Tender, No Accessory Muscle Use, No Respiratory Distress Cardiovascular: Regular Rate, Rhythm, No JVD Gastrointestinal: non tender, soft Extremity: Normal Capillary Refill, Normal Inspection Neurologic/Psychiatric: Alert, Oriented x3, No Motor/Sensory Deficits, Normal Mood/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, 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 Norm as Tested Skin: Normal Color, Warm/Dry Lymphatic: No Adenopathy Results Lab Laboratory Tests 10/08/18 12:05: Hemoglobin 9.2L, Hematocrit 28L 10/08/18 14:04: Lab Scanned Report Transfusion Reaction Form 10/08/18 16:00: Hemoglobin 10.0L, Hematocrit 30L 10/09/18 03:05: Hemoglobin 9.2L, Hematocrit 28L, White Blood Count 7.0, Red Blood Count 3.25L, Mean Corpuscular Volume 87, Mean Corpuscular Hemoglobin 28, Mean Corpuscular Hemoglobin Concent 33, Red Cell Distribution Width 16.1H, Platelet Count 199, Mean Platelet Volume 9.7, Neutrophils (%) (Auto) 61, Lymphocytes (%) (Auto) 28, Monocytes (%) (Auto) 8, Eosinophils (%) (Auto) 4, Basophils (%) (Auto) 1, Neutrophils # (Auto) 4.3, Lymphocytes # (Auto) 1.9, Monocytes # (Auto) 0.5, Eosinophils # (Auto) 0.3, Basophils # (Auto) 0.0, Sodium Level 145, Potassium Level 4.1, Chloride Level 112H, Carbon Dioxide Level 21, Anion Gap 12, Blood Urea Nitrogen 21H, Creatinine 0.83, Estimat Glomerular Filtration Rate > 60, BUN/Creatinine Ratio 25, Glucose Level 81, Calcium Level 8.9, Phosphorus Level 3.7, Magnesium Level 1.8 Microbiology 10/08/18 MRSA Screen - Final, Complete MRSA not isolated Assessment/Plan Assessment/Plan Assessment/Plan gi bleed- ulcer at gastrojejunal anastomosis- no active bleeding melena epigastric abdominal pain-resolved supratherapeutic INR History of gastric bypass keep on Protonix follow hgb patient wanting to go home, okay with short term follow up and if any changes be seen at that time repeat egd to reevaluate in about 6 weeks. Clinical Quality Measures DVT/VTE Risk/Contraindication: Risk Factor Score Per Nursin RFS Level Per Nursing on Admit: 4+=Very High STALIN LIZAMA DO October 09, 2018 10:43
--- NOTE | 2018-10-10 15:08 | Physician Query-Final Dx ---
Final Diagnosis Give Final Diagnosis Please give Final Diagnosis ARNEL AMBROCIO October 10, 2018 15:08
== END 2018-10-09 10:00 | disposition home or self-care (01) | DRG 378 ==
LOC: EDUNIT# 16:33 → ER 16:34 → ICU 17:49
PROVIDERS: ADMIT Internal Medicine; ATTEND Internal Medicine
PROC: 0DB68ZX Excision of Stomach, Via Natural or Artificial Opening Endoscopic, Diagnostic (ICD-10-PCS; principal; 2018-10-08 11:05)
DX: K28.4 Chronic or unspecified gastrojejunal ulcer with hemorrhage (principal); E66.9 Obesity, unspecified; Z68.41 Body mass index [BMI] 40.0-44.9, adult; I25.10 Atherosclerotic heart disease of native coronary artery without angina pectoris; I10 Essential (primary) hypertension; E03.9 Hypothyroidism, unspecified; R79.1 Abnormal coagulation profile; Z79.01 Long term (current) use of anticoagulants; Z79.82 Long term (current) use of aspirin; Z95.2 Presence of prosthetic heart valve; Z98.84 Bariatric surgery status; Z95.5 Presence of coronary angioplasty implant and graft
CPT/HCPCS: 36415; 71045; 80048; 80053; 83735; 84100; 85014; 85018; 85025; 85610; 85730; 86850; 86900; 86901; 86920; 87081; 88305; 96361; 96365; 96375

== ENCOUNTER → 2019-02-06 | Outpatient (CLI) | payer MEDICAID, MEDICARE ==
[~2019-02-06] MED LIST changes: +ASCO500T6 PO; +ASPI325T32 PO; +CHOL20003 PO; +IRON 27MG PO; +MULT-1029 PO; +PANT40TA3 PO; +PRD20T
== END ==
LOC: CARD 08:47
PROVIDERS: ATTEND Internal Medicine
DX: I08.3 Combined rheumatic disorders of mitral, aortic and tricuspid valves (principal); Z95.2 Presence of prosthetic heart valve
CPT/HCPCS: 93306

== ENCOUNTER → 2020-01-26 | Outpatient (CLI) | payer MEDICARE ==
[~2020-01-26] MED LIST changes: +ASCO500T17 PO; -ASCO500T6 PO; -METO-387 PO; +MTP25TSR PO; -WARF5TAB8 PO; +WRF5T PO
== END ==
LOC: CARD 08:07
PROVIDERS: ATTEND Internal Medicine
DX: I08.0 Rheumatic disorders of both mitral and aortic valves (principal); Z95.2 Presence of prosthetic heart valve
CPT/HCPCS: 93306

== ENCOUNTER 2021-10-05 08:31 | Observation (INO) | payer MEDICARE ==
[2021-10-05] VITALS (7 sets, daily range): BP systolic 133–179; BP diastolic 53–74
[~2021-10-05] VITALS: Ht 152.4 cm; Wt 76.5 kg
[~2021-10-05 08:31] MED LIST changes: -PANT40TA3 PO; +PANT40TA52 PO
[2021-10-05 09:00] LABS: BASOPHILS # (AUTO) 0.1 10^3/uL (0.0-0.1); BASOPHILS % (AUTO) 1 % (0-10); EOSINOPHILS # (AUTO) 0.1 10^3/uL (0.0-0.3); EOSINOPHILS % (AUTO) 1 % (0-10); HEMATOCRIT 43 % (35-52); HEMOGLOBIN 14.1 g/dL (11.5-16.0); LYMPHOCYTES # (AUTO) 1.5 10^3/uL (1.0-4.0); LYMPHOCYTES % (AUTO) 23 % (12-44); MEAN CORPUSCULAR HEMOGLOBIN 29 pg (25-34); MEAN CORPUSCULAR HGB CONC 33 g/dL (32-36); MEAN CORPUSCULAR VOLUME 87 fL (80-99); MEAN PLATELET VOLUME 9.9 fL (9.0-12.2); MONOCYTES # (AUTO) 0.6 10^3/uL (0.0-1.0); MONOCYTES % (AUTO) 9 % (0-12); NEUTROPHILS # (AUTO) 4.1 10^3/uL (1.8-7.8); NEUTROPHILS % (AUTO) 65 % (42-75); PLATELET COUNT 258 10^3/uL (130-400); WHITE BLOOD COUNT 6.3 10^3/uL (4.3-11.0)
[2021-10-05 09:10] LABS: POTASSIUM 4.3 MMOL/L (3.6-5.0)
[2021-10-05 09:11] LABS: CALCIUM 9.8 MG/DL (8.5-10.1)
[2021-10-05 09:12] LABS: TOTAL PROTEIN 7.3 GM/DL (6.4-8.2)
--- NOTE | 2021-10-05 09:13 | Diagnostic Imaging Report ---
INDICATION: Chest pain. TECHNIQUE/COMPARISON: A single AP view of the chest was obtained with comparison made to the study of 10/09/2018. FINDINGS: The heart size and pulmonary vascularity are within normal limits. Surgical findings in the mediastinum are stable. Mildly prominent interstitial markings in the right perihilar region may represent mild subsegmental atelectasis or pneumonitis. IMPRESSION: Mild right perihilar atelectasis and/or pneumonitis without other evidence of acute abnormality or adverse change. Dictated by: Dictated on workstation # [id number]
[2021-10-05 09:14] LABS: BILIRUBIN,TOTAL 0.6 MG/DL (0.1-1.0); INR 1.9 (0.8-1.4); PROTHROMBIN TIME PATIENT 21.9 SEC (12.2-14.7)
[2021-10-05 09:16] LABS: CREATININE SERUM 1.28 MG/DL (0.60-1.30)
--- NOTE | 2021-10-05 09:43 | ED Chest Pain ---
General Chief Complaint: Chest Pain Stated Complaint: AFIB Nursing Triage Note: PT ARRIVAL TO ER WITH COMPLAINT OF CHEST PRESSURE SINCE LAST NIGHT. PT STATES THAT ITS A COME AND GO PRESSURE. PT DENIES NAUSEA OR OTHER PAIN. PT STATES THAT IT DOES GO THROUGH TO HER BACK. PT CALLED HER PCP THIS MORNING BUT OFFICE WAS CLOSED. PT WENT TO [facility] AND WAS SENT HERE BECAUSE HER HR WAS IN THE 40'S. Source: patient Exam Limitations: no limitations History of Present Illness Date Seen by Provider: October 05, 2021 Time Seen by Provider: 08:33 Initial Comments This 70-year-old woman presents to the emergency room by private vehicle as referred by the clinic for reasons of chest pressure and abnormal EKG. She was not able to get into her PCP and so presented to the [facility] walk-in clinic. She reports having chest pressure and back pressure last night and then again this morning. She denies any pain at this time. She took aspirin 325 mg last night at onset of pain. She notes recently starting diltiazem but she does not have history of atrial fibrillation. She is anticoagulated for mechanical aortic valve. She receives most of her cardiac care with Dr. Patel at [facility]. 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 Dr. Zuniag is her primary care provider. Allergies and Home Medications Allergies Coded Allergies: No Known Drug Allergies (Verified , 05/21/07) Patient Home Medication List Home Medication List Reviewed: Yes Acetaminophen (Tylenol Extra Strength) 500 Mg Tablet, 500-1,000 MG PO Q8H PRN for PAIN-MILD (1-4), (Reported) Entered as Reported by: MARIO ROBERSON on 10/05/211406 Last Action: Reviewed Ascorbate Calcium (Vitamin C) 500 Mg Tablet, 500 MG PO DAILY, (Reported) Entered as Reported by: MARIO ROBERSON on 10/05/211406 Last Action: Reviewed Atorvastatin Calcium (Atorvastatin Calcium) 40 Mg Tablet, 40 MG PO DAILY, (Reported) Entered as Reported by: CHRISTIE RIVAS on 08/23/18 4361 Last Action: Continued Cholecalciferol (Vitamin D3) (Vitamin D3) 50 Mcg (2000 Unit) Capsule, 50 MCG PO DAILY, (Reported) Entered as Reported by: MARIO ROBERSON on 10/05/211406 Last Action: Reviewed Cyanocobalamin (Vitamin B-12) (Vitamin B-12) 500 Mcg Tablet, 500 MCG PO DAILY, (Reported) Entered as Reported by: MARIO ROBERSON on 10/05/211406 Last Action: Reviewed Diltiazem HCl (Diltiazem 24Hr ER) 180 Mg Cap.er.24h, 180 MG PO DAILY, (Reported) Entered as Reported by: MARIO ROBERSON on 10/05/211406 Last Action: Held Levothyroxine Sodium (Levothyroxine Sodium) 100 Mcg Tablet, 100 MCG PO DAILY, (Reported) Entered as Reported by: CHRISTIE RIVAS on 08/23/181350 Last Action: Continued Methylcellulose (Fiber) 500 Mg Tablet, 1,500 MG PO Q48H, (Reported) Entered as Reported by: MARIO ROBERSON on 10/05/211406 Last Action: Continued Multivit-Min/FA/Lycopene/Lut (Centrum Silver Tablet) 0.4 Mg-300 Mcg-250 Mcg Tablet, 1 EACH PO DAILY, (Reported) Entered as Reported by: MARIO ROBERSON on 10/05/211406 Last Action: Reviewed Warfarin Sodium (Jantoven) 4 Mg Tablet, 4 MG PO DAILY, (Reported) Entered as Reported by: MARIO ROBERSON on 10/05/211406 Last Action: Continued Discontinued Medications Ascorbic Acid (Vitamin C) 500 Mg Tablet, 500 MG PO DAILY, (Reported) Discontinued Reason: No Longer Taking Entered as Reported by: LOPEZ TRINH on 10/08/18 111 Last Action: Discontinued Candesartan/Hydrochlorothiazid (Candesartan-Hctz 32-12.5 mg Tb) 1 Each Tablet, 1 TAB PO DAILY, (Reported) Discontinued Reason: No Longer Taking Entered as Reported by: CHRISTIE RIVAS on 08/23/181350 Last Action: Discontinued Cholecalciferol (Vitamin D3) (Vitamin D3) 2,000 Unit Capsule, 2,000 UNIT PO DAILY, (Reported) Discontinued Reason: No Longer Taking Entered as Reported by: LOPEZ TRINH on 10/08/18 111 Last Action: Discontinued Metoprolol Succinate (Metoprolol Succinate) 25 Mg Tab.er.24h, 25 MG PO DAILY, (Reported) Discontinued Reason: No Longer Taking Entered as Reported by: CHRISTIE RIVAS on 08/23/181350 Last Action: Discontinued Multivit-Min/FA/Lycopene/Lut (Centrum Silver Tablet) 1 Each Tablet, 1 TAB PO DAILY, (Reported) Discontinued Reason: No Longer Taking Entered as Reported by: LOPEZ TRINH on 10/08/18 111 Last Action: Discontinued Pantoprazole Sodium (Pantoprazole Sodium) 40 Mg Tablet.dr, 40 MG PO DAILY Discontinued Reason: No Longer Taking Prescribed by: TOM ZUNIGA on 10/09/18 0823 Last Action: Discontinued Warfarin Sodium (Jantoven) 5 Mg Tablet, 7.5 MG PO DAILY, (Reported) Discontinued Reason: No Longer Taking Entered as Reported by: CHRISTIE RIVAS on 08/23/18 135 Last Action: Discontinued [Iron 27MG] , 27 MG PO DAILY, (Reported) Discontinued Reason: No Longer Taking Entered as Reported by: LOPEZ TRINH on 10/08/18 111 Last Action: Discontinued Review of Systems Review of Systems Constitutional: no symptoms reported EENTM: No Symptoms Reported Respiratory: No Symptoms Reported Cardiovascular: See HPI Gastrointestinal: No Symptoms Reported Genitourinary: No Symptoms Reported Musculoskeletal: no symptoms reported Skin: no symptoms reported Psychiatric/Neurological: No Symptoms Reported Endocrine: No Symptoms Reported Hematologic/Lymphatic: No Symptoms Reported Past Ivcujkb-Tsyyaj-Bppngy Hx Patient Social History Tobacco Use?: No Use of E-Cig and/or Vaping dev: No Substance use?: No Alcohol Use?: No Pt feels they are or have been: No Immunizations Up To Date Tetanus Booster (TDap): Unknown PED Vaccines UTD: No Influenza Vaccine Up-to-Date: Yes; Up-to-Date COVID19 Vaccine Product Manager Financial Services: YANIQUE Past Medical History Surgeries: Yes ( ovarian cyst removal, 2011 aortic valve replaced, gastric bypass) Coronary Stent, Hysterectomy, Valve Replacement (Mechanical aortic) Respiratory: No Cardiac: Yes (aortic valve replaced, mitral valve disease) Hypertension, Valvular Heart Disease Neurological: No Genitourinary: No Gastrointestinal: No Musculoskeletal: No Endocrine: Yes Hypothyroidsim, Lupus HEENT: Yes (cataracts removed) Cancer: No Psychosocial: No Integumentary: No Blood Disorders: No Family Medical History No Pertinent Family Hx Physical Exam Vital Signs Vital Signs - First Documented 10/05/21 08:54 Temp 36.6 Pulse 41 Resp 20 B/P (MAP) 187/52 (97) Pulse Ox 97 O2 Delivery Room Air Capillary Refill : Less Than 3 Seconds Height, Weight, BMI Height: 4'11.00" Weight: 198lbs. 0.0oz. 89.456831ed; 35.00 BMI Method:Stated General Appearance: No Apparent Distress, WD/WN HEENT: PERRL/EOMI, Normal ENT Inspection Neck: Normal Inspection Respiratory: Lungs Clear, Normal Breath Sounds, No Accessory Muscle Use Cardiovascular: Regular Rate, Rhythm, No Edema, Systolic Murmur, Irregularly Irregular Gastrointestinal: Normal Bowel Sounds, Non Tender, Soft Extremity: Normal Inspection, Non Tender, No Pedal Edema Neurologic/Psychiatric: Alert, Oriented x3, No Motor/Sensory Deficits, Normal Mood/Affect Skin: Normal Color, Warm/Dry Progress/Results/Core Measures Results/Orders Lab Results Laboratory Tests Test 10/05/21 08:47 Range/Units White Blood Count 6.3 4.3-11.0 10^3/uL Red Blood Count 4.93 3.80-5.11 10^6/uL Hemoglobin 14.1 11.5-16.0 g/dL Hematocrit 43 35-52 % Mean Corpuscular Volume 87 80-99 fL Mean Corpuscular Hemoglobin 29 25-34 pg Mean Corpuscular Hemoglobin Concent 33 32-36 g/dL Red Cell Distribution Width 13.9 10.0-14.5 % Platelet Count 258 130-400 10^3/uL Mean Platelet Volume 9.9 9.0-12.2 fL Immature Granulocyte % (Auto) 0 % Neutrophils (%) (Auto) 65 42-75 % Lymphocytes (%) (Auto) 23 12-44 % Monocytes (%) (Auto) 9 0-12 % Eosinophils (%) (Auto) 1 0-10 % Basophils (%) (Auto) 1 0-10 % Neutrophils # (Auto) 4.1 1.8-7.8 10^3/uL Lymphocytes # (Auto) 1.5 1.0-4.0 10^3/uL Monocytes # (Auto) 0.6 0.0-1.0 10^3/uL Eosinophils # (Auto) 0.1 0.0-0.3 10^3/uL Basophils # (Auto) 0.1 0.0-0.1 10^3/uL Immature Granulocyte # (Auto) 0.0 0.0-0.1 10^3/uL Prothrombin Time 21.9 H 12.2-14.7 SEC INR Comment 1.9 H 0.8-1.4 Activated Partial Thromboplast Time 35 24-35 SEC Sodium Level 139 135-145 MMOL/L Potassium Level 4.3 3.6-5.0 MMOL/L Chloride Level 106 98-107 MMOL/L Carbon Dioxide Level 19 L 21-32 MMOL/L Anion Gap 14 5-14 MMOL/L Blood Urea Nitrogen 30 H 7-18 MG/DL Creatinine 1.28 0.60-1.30 MG/DL Estimat Glomerular Filtration Rate 45 BUN/Creatinine Ratio 23 Glucose Level 165 H 70-105 MG/DL Calcium Level 9.8 8.5-10.1 MG/DL Corrected Calcium 9.8 8.5-10.1 MG/DL Magnesium Level 2.0 1.6-2.4 MG/DL Total Bilirubin 0.6 0.1-1.0 MG/DL Aspartate Amino Transf (AST/SGOT) 30 5-34 U/L Alanine Aminotransferase (ALT/SGPT) 27 0-55 U/L Alkaline Phosphatase 119 40-136 U/L Myoglobin 71.6 10.0-92.0 NG/ML Troponin I < 0.028 <0.028 NG/ML Total Protein 7.3 6.4-8.2 GM/DL Albumin 4.0 3.2-4.5 GM/DL Thyroid Stimulating Hormone (TSH) 0.97 0.35-4.94 UIU/ML Free Thyroxine 1.16 0.70-1.48 NG/DL My Orders Orders - TRAY WASHINGTON MD Chest 1 View, Ap/Pa Only (10/05/21 08:33) Ekg Tracing (10/05/21 08:33) Cbc With Automated Diff (10/05/21 08:33) Magnesium (10/05/21 08:33) Comprehensive Metabolic Panel (10/05/21:33) Myoglobin Serum (10/05/21 08:33) Protime With Inr (10/05/21 08:33) Partial Thromboplastin Time (10/05/21 08:33) O2 (10/05/21 08:33) Monitor-Rhythm Ecg Trace Only (10/05/21 08:33) Lipid Panel (10/06/21 06:00) Ed Iv/Invasive Line Start (10/05/21 08:33) Troponin I [place] (10/05/21 08:33) Thyroid Stimulating Hormone (10/05/21 09:53) Free T4 (Free Thyroxine) (10/05/21 09:53) Ed Admission (Communication) (10/05/21 10:17) Vital Signs/I&O 10/05/21 08:54 Temp 36.6 Pulse 41 Resp 20 B/P (MAP) 187/52 (97) Pulse Ox 97 O2 Delivery Room Air Blood Pressure Mean: 97 Progress Progress Note : Progress Note Aside from heart block work-up was unremarkable. Dr. Azevedo presented to the ER to evaluate the patient. Admission for observation is necessary to ensure no decompensation with the heart block. Dr. Azevedo would like to allow her 24 to 48 hours off of diltiazem before determining if pacemaker is necessary. We will continue warfarin in the meantime. Dr. Nieto is available Sunday to place the pacemaker if necessary. I discussed CODE STATUS with the patient and she elects to remain full code. Initial ECG Impression Date: October 05, 2021 Initial ECG Impression Time: 08:42 Initial ECG Rate: 46 Comment Complete heart block with bradycardia. No ST elevation or depression. No axis deviation. Diagnostic Imaging Diagonstic Imaging: Xray Plain Films/CT/US/NM/MRI: chest Comments Chest x-ray report reviewed. See report below: NAME: MARIELY DELVALLE [facility] REC#: [id number] PT STATUS: REG ER : 1950 PHYSICIAN: TRAY WASHINGTON MD ADMIT DATE: 10/05/21/ER Draft Date of Exam:10/05/21 CHEST 1 VIEW, AP/PA ONLY INDICATION: Chest pain. TECHNIQUE/COMPARISON: A single AP view of the chest was obtained with comparison made to the study of 10/09/2018. FINDINGS: The heart size and pulmonary vascularity are within normal limits. Surgical findings in the mediastinum are stable. Mildly prominent interstitial markings in the right perihilar region may represent mild subsegmental atelectasis or pneumonitis. IMPRESSION: Mild right perihilar atelectasis and/or pneumonitis without other evidence of acute abnormality or adverse change. Dictated on workstation # [id number] Dict: 10/05/21907 Trans: 10/05/21 0912 [id number] Interpreted by: SOPHIE ARDON MD Departure Communication (Admissions) Time/Spoke to Admitting Phy: 09:45 Dr. Mitchell Impression Primary Impression: Complete heart block Disposition: ADMITTED INPATIENT Condition: Improved Admissions Decision to Admit Reason: Admit from ER (General) Decision to Admit/Date: October 05, 2021 Time/Decision to Admit Time: 09:45 Departure-Patient Inst. Referrals: TOM ZUNIGA MD (PCP/Family) Primary Care Physician Copy Copies To 1: CHANCE BELLA MD FACP FAC CCDS Copies To 2: TOM ZUNIGA MD, JOSHUA T MD October 05, 2021 09:42
--- NOTE | 2021-10-05 10:20 | History & Physical-Hospitalist ---
History of Present Illness HPI/Chief Complaint CC: Weakness and SOB HPI: This is a clinic pt of Dr. Zuniga who has a past medical history of cardiac dysfunction. Managed in [facility] along with Dr. Bella. She presented to the ER with SOB and weakness and was found to be in complete heart block. Apparently she just started on Diltiazem the last month or two. It's a possibility it is a drug reaction. We put her in the hospital observation status, monitor telemetry, and consult Dr. Azevedo who is data communications analyst for Dr. Bella. Source: patient Exam Limitations: no limitations Date Seen 10/05/21 Time Seen by a Provider: 13:00 Attending Physician Rich Zuniga MD PCP Admitting Physician: Attending Physician: Referring Physician Date of Admission Home Medications & Allergies Home Medications Reviewed patient Home Medication Reconciliation performed by pharmacy medication reconciliations shampoo technician and/or nursing. Patients Allergies have been reviewed. Allergies Allergies Coded Allergies No Known Drug Allergies (Verified05/21/07) Past Bpiasug-Nitnmz-Bbdlcc Hx Patient Social History Marrital Status: single Employed/Student: retired Tobacco Use?: No Smoking Status: Never a Smoker (9) Use of E-Cig and/or Vaping dev: No Substance use?: No Alcohol Use?: No Pt feels they are or have been: No Immunizations Up To Date Tetanus Booster (TDap): Unknown PED Vaccines UTD: No Date of Pneumonia Vaccine: May 14, 2018 Current Status Advance Directives: No Primary Language: Monegasque Preferred Spoken Language: Monegasque Implanted or Applied Medical D: None Past Medical History Surgeries: Coronary Stent, Hysterectomy, Valve Replacement (Mechanical aortic) Hypertension, Valvular Heart Disease Hypothyroidsim, Lupus Blood Disorders: No Family Medical History No Pertinent Family Hx Review of Systems Constitutional: see HPI, weakness EENTM: no symptoms reported Respiratory: no symptoms reported Cardiovascular: palpitations Gastrointestinal: no symptoms reported Genitourinary: no symptoms reported Musculoskeletal: no symptoms reported Skin: no symptoms reported Psychiatric/Neurological: No Symptoms Reported All Other Systems Reviewed Negative Unless Noted: Yes Physical Exam Physical Exam Vital Signs Vital Signs - First Documented 10/05/21 10/05/21 10/06/21 08:54 13:58 03:11 Temp 36.6 Pulse 41 Resp 20 B/P (MAP) 187/52 (97) Pulse Ox 97 O2 Delivery Room Air O2 Flow Rate 2.00 FiO2 21 Capillary Refill : Less Than 3 Seconds Height, Weight, BMI Height: 4'11.00" Weight: 198lbs. 0.0oz. 89.886522se; 35.00 BMI Method:Stated General Appearance: No Apparent Distress Eyes: Right Eye Normal Inspection, Right Eye PERRL HEENT: PERRL/EOMI, Normal ENT Inspection, Pharynx Normal, Moist Mucous Membrane s Neck: Full Range of Motion, Normal Inspection, Non Tender Respiratory: Chest Non Tender, Lungs Clear, Normal Breath Sounds, No Accessory Muscle Use, No Respiratory Distress Cardiovascular: Regular Rate, Rhythm, No Edema, No Gallop, No JVD, No Murmur, Normal Peripheral Pulses Gastrointestinal: Normal Bowel Sounds, No Organomegaly, No Pulsatile Mass, Non Tender, Soft Back: Normal Inspection, No CVA Tenderness, No Vertebral Tenderness Extremity: Normal Capillary Refill, Normal Inspection, Normal Range of Motion, Non Tender, No Calf Tenderness, No Pedal Edema Neurologic/Psychiatric: Alert, Oriented x3, No Motor/Sensory Deficits, Normal Mood/Affect Skin: Normal Color, Warm/Dry Lymphatic: No Adenopathy Results Results/Procedures Labs Laboratory Tests 10/05/21 08:47 10/06/21 05:52 Patient resulted labs reviewed. Assessment/Plan Admission Diagnosis Assessment: Complete heart block Weakness Hypothyroidism Aortic valve replacement Warfarin anticoagulation CAD Plan: Telemetry Cardiology consult Gentle IV fluids Hold diltiazem Admission Status: Observation Diagnosis/Problems Diagnosis/Problems (1) Complete heart block Status: Acute (2) Coronary artery disease without angina pectoris (3) Primary hypertension (4) Mixed hyperlipidemia (5) History of mechanical aortic valve replacement Clinical Quality Measures AMI/AHF: ASA po Prior to arrival: ANNA Munoz DO October 05, 2021 10:20
[2021-10-05 10:29] LABS: FREE T4 (FREE THYROXINE) 1.16 NG/DL (0.70-1.48)
[2021-10-05] MEDS ORDERED: ANTACID SUSP 30 ML UDC (MYLANTA) PO PRN (11:00)
[2021-10-05] MEDS ORDERED: morphine INJ 4 MG/ML 1 ML (VIAL/SYRINGE) IV PRN (11:00)
[2021-10-05] MEDS ORDERED: diphenhydrAMINE 50 MG/ML INJ (BENADRYL) IVP PRN (11:00)
[2021-10-05] MEDS ORDERED: diphenhydrAMINE 25 MG TAB (BENADRYL) PO PRN (11:00)
[2021-10-05] MEDS ORDERED: ALPRAZolam 0.25 MG (XANAX) TAB PO PRN (11:00)
[2021-10-05] MEDS ORDERED: MELATONIN 3 MG TABLET PO PRN (11:00)
[2021-10-05] MEDS ORDERED: CALCIUM CARBONATE 500 MG (TUMS) TAB.CHEW PO PRN (11:00)
[2021-10-05] MEDS ORDERED: BISACODYL 10 MG SUPP (DULCOLAX) PR PRN (11:00)
[2021-10-05] MEDS ORDERED: LACTULOSE SYRUP 10GM/15ML (ENULOSE) 30ML UDC PO PRN (11:00)
[2021-10-05] MEDS ORDERED: polyethylene glycoL POWDER 17 GM (MIRALAX) PACK PO PRN (11:00)
[2021-10-05] MEDS ORDERED: ONDANSETRON 4 MG (ZOFRAN) ORAL DISSOLVE TAB PO PRN (11:00)
[2021-10-05] MEDS ORDERED: ONDANSETRON 4 MG/2 ML (SDV) Z0FRAN IV PRN (11:00)
[2021-10-05] MEDS ORDERED: MILK OF MAGNESIA 400 MG/5 ML 30 ML UDC PO PRN (11:00)
[2021-10-05] MEDS: NS IV 1000 ML 1,000 ML IV SCH (13:06)
[2021-10-05] MEDS ORDERED: CHOL20003 PO (14:07)
[2021-10-05] MEDS ORDERED: WARF4TAB9 PO (14:07)
[2021-10-05] MEDS ORDERED: METH-336 PO (14:07)
[2021-10-05] MEDS ORDERED: MULT-1029 PO (14:07)
[2021-10-05] MEDS ORDERED: DILT180C85 PO (14:07)
[2021-10-05] MEDS ORDERED: ACET-2267 PO (14:07)
[2021-10-05] MEDS ORDERED: CYAN500T8 PO (14:07)
[2021-10-05] MEDS ORDERED: ASCO-262 PO (14:07)
[2021-10-05] MEDS ORDERED: RT-ALBUTEROL SULF 2.5 MG/3 ML PRE-MIX VIAL INH PRN (14:15)
--- NOTE | 2021-10-05 17:43 | Consultation-Cardiology ---
HPI-Cardiology Cardiology Consultation: Date of Consultation 10/05/21 Date of Admission 10/05/21 Attending Physician Tom Zuniga MD Admitting Physician Admitting Physician: Vera Mitchell DO Attending Physician: Vera Mitchell DO Consulting Physician DARLENE SIMMONS JR, MD HPI: Time Seen by a Provider: 17:38 Chief Complaint: REASON FOR CONSULTATION: Complete heart block. I had the pleasure of seeing Gladys at [facility] in [place], [place] today. She normally follows with a aircraft stress analyst at [facility]. She has a history of coronary artery disease with previous coronary stents, aortic stenosis with a previous mechanical aortic valve replacement, hypertension, and hyperlipidemia. She was in her usual state of health until this morning when she suddenly developed substernal chest pressure that radiated to her back and was associated with shortness of breath. This lasted for less than a minute. This resolved spontaneously. She does not recall having this sort of symptom in the past prior to any of her cardiac procedures. She became concerned and came to the hospital for further evaluation. She was found to be in intermittent complete heart block and a cardiology consultation was requested. She tells me that about 3 months ago her primary provider changed her hypertensive medication over to diltiazem. She believes that she was taking metoprolol before that but she is not quite sure. She lives alone and does all of her own housekeeping and some yard work without difficulty with her breathing. She denies paroxysmal nocturnal dyspnea, orthopnea, palpitations, lightheadedness, syncope, or ankle edema. Certain portions of this document may have been dictated utilizing voice recognition technology. Inherent to this technology, typographical and grammatical errors may exist. As much as I am diligent to identify and correct these mistakes, some errors may remain in the document. Review of Systems-Cardiology Review of Systems Other comments Review of 10 organ systems is as per the history of present illness, otherwise negative. IWV-[id number]-Seyskw Hx Patient Social History Have you traveled recently?: No Alcohol Use?: No Pt feels they are or have been: No Immunizations Up To Date Tetanus Booster (TDap): Unknown Date of Pneumonia Vaccine: May 14, 2018 Past Medical History PMH As described under Assessment. Family Medical History Family Medical History: She did not report a family history of premature coronary artery disease. Allergies and Home Medications Allergies Coded Allergies: No Known Drug Allergies (Verified , 05/21/07) Patient Home Medication List Home Medication List Reviewed: Yes Acetaminophen (Tylenol Extra Strength) 500 Mg Tablet, 500-1,000 MG PO Q8H PRN for PAIN-MILD (1-4), (Reported) Entered as Reported by: MARIO ROBERSON on 10/05/211406 Last Action: Reviewed Ascorbate Calcium (Vitamin C) 500 Mg Tablet, 500 MG PO DAILY, (Reported) Entered as Reported by: MARIO ROBERSON on 10/05/211406 Last Action: Reviewed Atorvastatin Calcium (Atorvastatin Calcium) 40 Mg Tablet, 40 MG PO DAILY, (Re ported) Entered as Reported by: CHRISTIE RIVAS on 08/23/181350 Last Action: Continued Cholecalciferol (Vitamin D3) (Vitamin D3) 50 Mcg (2000 Unit) Capsule, 50 MCG PO DAILY, (Reported) Entered as Reported by: MARIO ROBERSON on 10/05/211406 Last Action: Reviewed Cyanocobalamin (Vitamin B-12) (Vitamin B-12) 500 Mcg Tablet, 500 MCG PO DAILY, (Reported) Entered as Reported by: MARIO ROBERSON on 10/05/211406 Last Action: Reviewed Diltiazem HCl (Diltiazem 24Hr ER) 180 Mg Cap.er.24h, 180 MG PO DAILY, (Reported) Entered as Reported by: MARIO ROBERSON on 10/05/211406 Last Action: Held Levothyroxine Sodium (Levothyroxine Sodium) 100 Mcg Tablet, 100 MCG PO DAILY, (Reported) Entered as Reported by: CHRISTIE RIVAS on 08/23/181350 Last Action: Continued Methylcellulose (Fiber) 500 Mg Tablet, 1,500 MG PO Q48H, (Reported) Entered as Reported by: MARIO ROBERSON on 10/05/211406 Last Action: Continued Multivit-Min/FA/Lycopene/Lut (Centrum Silver Tablet) 0.4 Mg-300 Mcg-250 Mcg Tablet, 1 EACH PO DAILY, (Reported) Entered as Reported by: MARIO ROBERSON on 10/05/211406 Last Action: Reviewed Warfarin Sodium (Jantoven) 4 Mg Tablet, 4 MG PO DAILY, (Reported) Entered as Reported by: MARIO ROBERSON on 5/25/22 1407 Last Action: Continued Discontinued Medications Ascorbic Acid (Vitamin C) 500 Mg Tablet, 500 MG PO DAILY, (Reported) Discontinued Reason: No Longer Taking Entered as Reported by: LOPEZ TRINH on 10/08/181113 Last Action: Discontinued Candesartan/Hydrochlorothiazid (Candesartan-Hctz 32-12.5 mg Tb) 1 Each Tablet, 1 TAB PO DAILY, (Reported) Discontinued Reason: No Longer Taking Entered as Reported by: CHRISTIE RIVAS on 08/23/181350 Last Action: Discontinued Cholecalciferol (Vitamin D3) (Vitamin D3) 2,000 Unit Capsule, 2,000 UNIT PO DAILY, (Reported) Discontinued Reason: No Longer Taking Entered as Reported by: LOPEZ TRINH on 10/08/181113 Last Action: Discontinued Metoprolol Succinate (Metoprolol Succinate) 25 Mg Tab.er.24h, 25 MG PO DAILY, (Reported) Discontinued Reason: No Longer Taking Entered as Reported by: CHRISTIE RIVAS on 08/23/181350 Last Action: Discontinued Multivit-Min/FA/Lycopene/Lut (Centrum Silver Tablet) 1 Each Tablet, 1 TAB PO DAILY, (Reported) Discontinued Reason: No Longer Taking Entered as Reported by: LOPEZ TRINH on 10/08/181113 Last Action: Discontinued Pantoprazole Sodium (Pantoprazole Sodium) 40 Mg Tablet.dr, 40 MG PO DAILY Discontinued Reason: No Longer Taking Prescribed by: TOM ZUNIGA on 10/09/18 0823 Last Action: Discontinued Warfarin Sodium (Jantoven) 5 Mg Tablet, 7.5 MG PO DAILY, (Reported) Discontinued Reason: No Longer Taking Entered as Reported by: CHRISTIE RIVAS on 08/23/181350 Last Action: Discontinued [Iron 27MG] , 27 MG PO DAILY, (Reported) Discontinued Reason: No Longer Taking Entered as Reported by: LOPEZ TRINH on 10/08/181113 Last Action: Discontinued Exam Vital Signs Vital Signs Date Time Temp Pulse Resp B/P (MAP) Pulse Ox O2 Delivery O2 Flow Rate FiO2 10/05/21 16:04 36.2 61 19 133/55 (81) 97 10/05/21 15:43 Room Air 10/05/21 13:58 21 Physical Exam General: Alert. No acute distress. Well nourished and appears stated age. She is obese. Eye: Extraocular movements are intact. Conjunctivae are clear. There are no xanthelasma. HENT: Normocephalic. Atraumatic. Carotid pulsations 2/2 without bruits. Neck: Jugular venous pressure does not appear elevated. No thyromegaly appreciated. Respiratory: Lungs are clear to auscultation. Respirations are non-labored. Breath sounds are equal. Symmetrical chest wall expansion. Cardiovascular: Normal rate. Regular rhythm. Normal S1. Metallic S2. 2/6 systolic ejection murmur. No gallop. Point of maximal impulse is not appear displaced. Good pulses equal in all extremities. Trace bilateral pretibial edema. Gastrointestinal: Soft. Normal bowel sounds. Skin: Skin turgor is normal. There is no pallor. Musculoskeletal: No kyphosis or scoliosis appreciated. Neurologic: Alert and oriented to person, place, time. Cranial nerves 3-12 appear grossly intact. The patient has good motor tone strength in the upper and lower extremities bilaterally. Psychiatric: Cooperative. Appropriate mood & affect. Labs Laboratory Tests Test 10/05/21 08:47 Range/Units White Blood Count 6.3 4.3-11.0 10^3/uL Red Blood Count 4.93 3.80-5.11 10^6/uL Hemoglobin 14.1 11.5-16.0 g/dL Hematocrit 43 35-52 % Mean Corpuscular Volume 87 80-99 fL Mean Corpuscular Hemoglobin 29 25-34 pg Mean Corpuscular Hemoglobin Concent 33 32-36 g/dL Red Cell Distribution Width 13.9 10.0-14.5 % Platelet Count 258 130-400 10^3/uL Mean Platelet Volume 9.9 9.0-12.2 fL Immature Granulocyte % (Auto) 0 % Neutrophils (%) (Auto) 65 42-75 % Lymphocytes (%) (Auto) 23 12-44 % Monocytes (%) (Auto) 9 0-12 % Eosinophils (%) (Auto) 1 0-10 % Basophils (%) (Auto) 1 0-10 % Neutrophils # (Auto) 4.1 1.8-7.8 10^3/uL Lymphocytes # (Auto) 1.5 1.0-4.0 10^3/uL Monocytes # (Auto) 0.6 0.0-1.0 10^3/uL Eosinophils # (Auto) 0.1 0.0-0.3 10^3/uL Basophils # (Auto) 0.1 0.0-0.1 10^3/uL Immature Granulocyte # (Auto) 0.0 0.0-0.1 10^3/uL Prothrombin Time 21.9 H 12.2-14.7 SEC INR Comment 1.9 H 0.8-1.4 Activated Partial Thromboplast Time 35 24-35 SEC Sodium Level 139 135-145 MMOL/L Potassium Level 4.3 3.6-5.0 MMOL/L Chloride Level 106 98-107 MMOL/L Carbon Dioxide Level 19 L 21-32 MMOL/L Anion Gap 14 5-14 MMOL/L Blood Urea Nitrogen 30 H 7-18 MG/DL Creatinine 1.28 0.60-1.30 MG/DL Estimat Glomerular Filtration Rate 45 BUN/Creatinine Ratio 23 Glucose Level 165 H 70-105 MG/DL Calcium Level 9.8 8.5-10.1 MG/DL Corrected Calcium 9.8 8.5-10.1 MG/DL Magnesium Level 2.0 1.6-2.4 MG/DL Total Bilirubin 0.6 0.1-1.0 MG/DL Aspartate Amino Transf (AST/SGOT) 30 5-34 U/L Alanine Aminotransferase (ALT/SGPT) 27 0-55 U/L Alkaline Phosphatase 119 40-136 U/L Myoglobin 71.6 10.0-92.0 NG/ML Troponin I < 0.028 <0.028 NG/ML Total Protein 7.3 6.4-8.2 GM/DL Albumin 4.0 3.2-4.5 GM/DL Thyroid Stimulating Hormone (TSH) 0.97 0.35-4.94 UIU/ML Free Thyroxine 1.16 0.70-1.48 NG/DL ECG Impression ECG Comment Sinus bradycardia at 46 bpm with first-degree AV block and poor R wave progressi on. Diagnosis/Problems Diagnosis/Problems (1) Complete heart block Status: Acute Assessment & Plan: She appeared to have intermittent complete heart block in the emergency room. I suspect this may have contributed to her chest discomfort and dyspnea. She just started taking diltiazem about 3 months ago. This may have caused the heart block. I recommend she be admitted to telemetry. We may need to wait 48-72 hours for the diltiazem to completely metabolize from her system before we determine whether or not she might need a permanent pacemaker. (2) Coronary artery disease without angina pectoris Assessment & Plan: The episode of chest discomfort this morning was very short- lived. She has no ischemic changes on her electrocardiogram. Her troponin l evel was undetectable. I would just recommend we resume her statin medication. She is not taking aspirin because she is on warfarin for the aortic valve replacement. She is not a candidate for beta-vitaly due to the bradycardia. (3) Primary hypertension Assessment & Plan: She was on diltiazem for her hypertension. This has now been discontinued. If her blood pressure becomes elevated, I would suggest we start an ELMER inhibitor or ARB. (4) Mixed hyperlipidemia Assessment & Plan: Continue statin medication. (5) History of mechanical aortic valve replacement Assessment & Plan: Continue warfarin. This does not necessarily need to be held for device implantation if she ends up needing a pacemaker. DARLENE SIMMONS JR, MD October 05, 2021 17:43
[2021-10-05] MEDS ORDERED: warFARin 4 MG (COUMADIN) TAB PO SCH (18:00)
[2021-10-05] MEDS: ACETAMINOPHEN 325 MG TABLET PO PRN (20:11)
[2021-10-05] MEDS: SENNOSIDES 8.6 MG (SENOKOT) TAB PO SCH (20:12)
[2021-10-05] MEDS: DOCUSATE SODIUM 100 MG (COLACE) CAP PO SCH (20:12)
[2021-10-05] MEDS: RT-ALBUTEROL SULF 2.5 MG/3 ML PRE-MIX VIAL INH SCH (21:35)
[2021-10-06] VITALS (7 sets, daily range): BP systolic 142–162; BP diastolic 62–81
[2021-10-06] MEDS: NS IV 1000 ML 1,000 ML IV SCH (03:09)
[2021-10-06] MEDS: LEVOTHYROXINE 100 MCG (LEVOTHROID) TAB PO SCH (05:23)
[2021-10-06 06:05] LABS: BASOPHILS # (AUTO) 0.1 10^3/uL (0.0-0.1); BASOPHILS % (AUTO) 2 % (0-10); EOSINOPHILS # (AUTO) 0.1 10^3/uL (0.0-0.3); EOSINOPHILS % (AUTO) 2 % (0-10); HEMATOCRIT 39 % (35-52); HEMOGLOBIN 12.8 g/dL (11.5-16.0); LYMPHOCYTES # (AUTO) 1.6 10^3/uL (1.0-4.0); LYMPHOCYTES % (AUTO) 30 % (12-44); MEAN CORPUSCULAR HEMOGLOBIN 28 pg (25-34); MEAN CORPUSCULAR HGB CONC 33 g/dL (32-36); MEAN CORPUSCULAR VOLUME 86 fL (80-99); MEAN PLATELET VOLUME 9.7 fL (9.0-12.2); MONOCYTES # (AUTO) 0.5 10^3/uL (0.0-1.0); MONOCYTES % (AUTO) 9 % (0-12); NEUTROPHILS % (AUTO) 58 % (42-75); PLATELET COUNT 235 10^3/uL (130-400); WHITE BLOOD COUNT 5.2 10^3/uL (4.3-11.0)
[2021-10-06 06:16] LABS: ALBUMIN 3.5 GM/DL (3.2-4.5); POTASSIUM 4.2 MMOL/L (3.6-5.0)
[2021-10-06 06:17] LABS: CALCIUM 9.1 MG/DL (8.5-10.1); INR 1.9 (0.8-1.4); PROTHROMBIN TIME PATIENT 22.2 SEC (12.2-14.7)
[2021-10-06 06:19] LABS: TOTAL PROTEIN 6.5 GM/DL (6.4-8.2)
[2021-10-06 06:20] LABS: BILIRUBIN,TOTAL 0.5 MG/DL (0.1-1.0)
[2021-10-06 06:22] LABS: CREATININE SERUM 0.85 MG/DL (0.60-1.30)
--- NOTE | 2021-10-06 06:29 | Progress Note - Hospitalist ---
Subjective HPI/CC On Admission Date Seen by Provider: October 06, 2021 Time Seen by Provider: 10:30 CC: Weakness and SOB HPI: This is a clinic pt of Dr. Zuniga who has a past medical history of cardiac dysfunction. Managed in [facility] along with Dr. Bella. She presented to the ER with SOB and weakness and was found to be in complete heart block. Apparently she just started on Diltiazem the last month or two. It's a possibility it is a drug reaction. We put her in the hospital observation status, monitor telemetry, and consult Dr. Azevedo who is condominium manager for Dr. Bella. Subjective/Events-last exam Pt feels about the same Complete heart block continues noted on telemetry likely will require a pacemaker tomorrow Will hep lock IV fluid Review of Systems General: Fatigue, Malaise Objective Exam Vital Signs Vital Signs Date Time Temp Pulse Resp B/P (MAP) Pulse Ox O2 Delivery O2 Flow Rate FiO2 10/07/21 04:00 36.2 10/07/21 01:00 67 10/07/21 00:00 14 140/71 (94) 92 Room Air 10/06/21 12:25 0.00 10/05/21 13:58 21 Capillary Refill : Less Than 3 Seconds General Appearance: No Apparent Distress, WD/WN, Chronically ill Respiratory: Lungs Clear, Normal Breath Sounds Cardiovascular: Irregularly Irregular Neurologic/Psychiatric: Alert, Oriented x3 Results/Procedures Lab Laboratory Tests 10/06/21 05:52 Patient resulted labs reviewed. Assessment/Plan Assessment and Plan Assess & Plan/Chief Complaint Assessment: Complete heart block Weakness Hypothyroidism Aortic valve replacement Warfarin anticoagulation CAD Plan: Telemetry Cardiology consult Gentle IV fluids Hold diltiazem 10/06/2021: Supportive care Pacemaker? Diagnosis/Problems Diagnosis/Problems (1) Complete heart block Status: Acute (2) Coronary artery disease without angina pectoris (3) Primary hypertension (4) Mixed hyperlipidemia (5) History of mechanical aortic valve replacement Clinical Quality Measures AMI/AHF: ASA po Prior to arrival: ANNA Munoz DO October 06, 2021 06:29
--- NOTE | 2021-10-06 08:34 | Cardiology Progress Note ---
Progress Note-Cardiology Events since last exam Date Seen by Provider: October 06, 2021 Time Seen by Provider: 08:34 Events since last exam I am following her due to intermittent complete heart block. She remains on the cardiac stepdown unit. She did not have any prolonged pauses overnight. She has been getting some slight headaches when her blood pressure has been high. She denies any further chest discomfort or dyspnea that she had prior to admission. She denies palpitations, syncope, or ankle edema. Certain portions of this document may have been dictated utilizing voice recognition technology. Inherent to this technology, typographical and grammatical errors may exist. As much as I am diligent to identify and correct these mistakes, some errors may remain in the document. Vitals Last set of Vitals Signs Vital Signs 10/05/21 10/06/21 10/06/21 13:58 03:11 07:53 Temp 36.4 Pulse 68 Resp 16 B/P (MAP) 162/70 (100) Pulse Ox 97 O2 Delivery Nasal Cannula O2 Flow Rate 2.00 FiO2 21 Labs Labs Laboratory Tests 10/05/21 08:47 10/06/21 05:52 Exam Vital Signs Vital Signs Date Time Temp Pulse Resp B/P (MAP) Pulse Ox O2 Delivery O2 Flow Rate FiO2 10/06/21 07:53 36.4 68 16 162/70 (100) 97 10/06/21 03:11 Nasal Cannula 2.00 10/05/21 13:58 21 Physical Exam General: Alert. No acute distress. She is obese. Eye: No xanthelasma. HENT: Normocephalic. Neck: Jugular venous pressure does not appear elevated. Respiratory: Lungs are clear to auscultation. Respirations are non-labored. Breath sounds are equal. Symmetrical chest wall expansion. Cardiovascular: Normal rate. Regular rhythm. Normal S1. Metallic S2. 2/6 systolic ejection murmur. No gallop. Trace bilateral pretibial edema. Gastrointestinal: Soft. Normal bowel sounds. Skin: Warm. Dry. Neurologic: Alert and oriented to person, place, time. Cranial nerves 3-11 grossly intact. Psychiatric: Cooperative. Appropriate mood & affect. ELECTROCARDIOGRAM sinus rhythm with first-degree AV block and possible intermittent type II second-degree AV block. Labs Laboratory Tests Test 10/05/21 08:47 10/06/21 05:52 Range/Units White Blood Count 6.3 5.2 4.3-11.0 10^3/uL Red Blood Count 4.93 4.54 3.80-5.11 10^6/uL Hemoglobin 14.1 12.8 11.5-16.0 g/dL Hematocrit 43 39 35-52 % Mean Corpuscular Volume 87 86 80-99 fL Mean Corpuscular Hemoglobin 29 28 25-34 pg Mean Corpuscular Hemoglobin Concent 33 33 32-36 g/dL Red Cell Distribution Width 13.9 14.0 10.0-14.5 % Platelet Count 258 235 130-400 10^3/uL Mean Platelet Volume 9.9 9.7 9.0-12.2 fL Immature Granulocyte % (Auto) 0 0 % Neutrophils (%) (Auto) 65 58 42-75 % Lymphocytes (%) (Auto) 23 30 12-44 % Monocytes (%) (Auto) 9 9 0-12 % Eosinophils (%) (Auto) 1 2 0-10 % Basophils (%) (Auto) 1 2 0-10 % Neutrophils # (Auto) 4.1 3.0 1.8-7.8 10^3/uL Lymphocytes # (Auto) 1.5 1.6 1.0-4.0 10^3/uL Monocytes # (Auto) 0.6 0.5 0.0-1.0 10^3/uL Eosinophils # (Auto) 0.1 0.1 0.0-0.3 10^3/uL Basophils # (Auto) 0.1 0.1 0.0-0.1 10^3/uL Immature Granulocyte # (Auto) 0.0 0.0 0.0-0.1 10^3/uL Prothrombin Time 21.9 H 22.2 H 12.2-14.7 SEC INR Comment 1.9 H 1.9 H 0.8-1.4 Activated Partial Thromboplast Time 35 24-35 SEC Sodium Level 139 142 135-145 MMOL/L Potassium Level 4.3 4.2 3.6-5.0 MMOL/L Chloride Level 106 110 H 98-107 MMOL/L Carbon Dioxide Level 19 L 20 L 21-32 MMOL/L Anion Gap 14 12 5-14 MMOL/L Blood Urea Nitrogen 30 H 22 H 7-18 MG/DL Creatinine 1.28 0.85 0.60-1.30 MG/DL Estimat Glomerular Filtration Rate 45 74 BUN/Creatinine Ratio 23 26 Glucose Level 165 H 97 70-105 MG/DL Calcium Level 9.8 9.1 8.5-10.1 MG/DL Corrected Calcium 9.8 9.5 8.5-10.1 MG/DL Magnesium Level 2.0 1.6-2.4 MG/DL Total Bilirubin 0.6 0.5 0.1-1.0 MG/DL Aspartate Amino Transf (AST/SGOT) 30 31 5-34 U/L Alanine Aminotransferase (ALT/SGPT) 27 22 0-55 U/L Alkaline Phosphatase 119 104 40-136 U/L Myoglobin 71.6 10.0-92.0 NG/ML Troponin I < 0.028 <0.028 NG/ML Total Protein 7.3 6.5 6.4-8.2 GM/DL Albumin 4.0 3.5 3.2-4.5 GM/DL Thyroid Stimulating Hormone (TSH) 0.97 0.35-4.94 UIU/ML Free Thyroxine 1.16 0.70-1.48 NG/DL Triglycerides Level 83 <150 MG/DL Cholesterol Level 179 < 200 MG/DL LDL Cholesterol Direct 109 1-129 MG/DL VLDL Cholesterol 17 5-40 MG/DL HDL Cholesterol 58 40-60 MG/DL Diagnosis/Problems Diagnosis/Problems (1) Complete heart block Status: Acute Assessment & Plan: She appeared to have intermittent complete heart block in the emergency room. I suspect this may have contributed to her chest discomfort and dyspnea. She just started taking diltiazem about 3 months ago. This may have caused the heart block. She now seems to be spending more of her time in sinus rhythm with first-degree AV block. Hopefully, the complete heart block will resolve by tomorrow. We may need to wait another 24-48 hours for the diltiazem to completely metabolize from her system before we determine whether or not she might need a permanent pacemaker. (2) Coronary artery disease without angina pectoris Assessment & Plan: The episode of chest discomfort on the morning of admission was very short-lived. She has no ischemic changes on her electrocardiogram. Her troponin level was undetectable. I would just recommend we resume her statin medication. She is not taking aspirin because she is on warfarin for the aortic valve replacement. She is not a candidate for beta-vitaly due to the bradycardia. (3) Primary hypertension Assessment & Plan: She was on diltiazem for her hypertension. This has now been discontinued. Her blood pressure has now become elevated. I will start losartan. We will need to watch her renal function. (4) Mixed hyperlipidemia Assessment & Plan: Continue statin medication. (5) History of mechanical aortic valve replacement Assessment & Plan: I will hold the warfarin this evening in the event she needs a permanent pacemaker tomorrow. My partner who would do the pacemaker would prefer the warfarin to be held prior to the procedure. (6) Acute kidney injury Assessment & Plan: She had a slight bump in her creatinine level at the time of admission. This has improved. We will need to watch this closely with the addition of losartan for her hypertension. DARLENE SIMMONS JR, MD October 06, 2021 08:34
[2021-10-06] MEDS: LOSARTAN 50 MG (COZAAR) TAB PO SCH (08:57)
[2021-10-06] MEDS: DOCUSATE SODIUM 100 MG (COLACE) CAP PO SCH ×2 (09:00→21:50)
[2021-10-06] MEDS: SENNOSIDES 8.6 MG (SENOKOT) TAB PO SCH ×2 (09:00→21:50)
[2021-10-06] MEDS: ACETAMINOPHEN 325 MG TABLET PO PRN (09:04)
[2021-10-06] MEDS: RT-ALBUTEROL SULF 2.5 MG/3 ML PRE-MIX VIAL INH SCH ×2 (12:19→20:09)
[2021-10-07] VITALS: BP 140/71
[2021-10-07 05:53] LABS: BASOPHILS # (AUTO) 0.1 10^3/uL (0.0-0.1); BASOPHILS % (AUTO) 2 % (0-10); EOSINOPHILS # (AUTO) 0.1 10^3/uL (0.0-0.3); EOSINOPHILS % (AUTO) 2 % (0-10); HEMATOCRIT 40 % (35-52); HEMOGLOBIN 13.2 g/dL (11.5-16.0); LYMPHOCYTES # (AUTO) 1.7 10^3/uL (1.0-4.0); LYMPHOCYTES % (AUTO) 28 % (12-44); MEAN CORPUSCULAR HEMOGLOBIN 28 pg (25-34); MEAN CORPUSCULAR HGB CONC 33 g/dL (32-36); MEAN CORPUSCULAR VOLUME 87 fL (80-99); MEAN PLATELET VOLUME 9.5 fL (9.0-12.2); MONOCYTES # (AUTO) 0.5 10^3/uL (0.0-1.0); MONOCYTES % (AUTO) 8 % (0-12); NEUTROPHILS # (AUTO) 3.6 10^3/uL (1.8-7.8); NEUTROPHILS % (AUTO) 60 % (42-75); PLATELET COUNT 258 10^3/uL (130-400)
[2021-10-07 06:00] LABS: INR 1.7 (0.8-1.4); PROTHROMBIN TIME PATIENT 20.3 SEC (12.2-14.7)
[2021-10-07 06:02] LABS: ALBUMIN 3.7 GM/DL (3.2-4.5); POTASSIUM 4.5 MMOL/L (3.6-5.0)
--- NOTE | 2021-10-07 06:02 | Progress Note - Hospitalist ---
Subjective HPI/CC On Admission Date Seen by Provider: October 07, 2021 Time Seen by Provider: 10:00 CC: Weakness and SOB HPI: This is a clinic pt of Dr. Zuniga who has a past medical history of cardiac dysfunction. Managed in [facility] along with Dr. Bella. She presented to the ER with SOB and weakness and was found to be in complete heart block. Apparently she just started on Diltiazem the last month or two. It's a possibility it is a drug reaction. We put her in the hospital observation status, monitor telemetry, and consult Dr. Azevedo who is home energy consultant for Dr. Bella. Objective Exam Vital Signs Vital Signs Date Time Temp Pulse Resp B/P (MAP) Pulse Ox O2 Delivery O2 Flow Rate FiO2 10/07/21 08:00 Room Air 10/07/21 07:40 36.2 83 21 156/98 (117) 97 10/06/21 12:25 0.00 10/05/21 13:58 21 Capillary Refill : Less Than 3 Seconds Results/Procedures Lab Laboratory Tests 10/07/21 05:30 Patient resulted labs reviewed. Assessment/Plan Assessment and Plan Assess & Plan/Chief Complaint Assessment: Complete heart block Weakness Hypothyroidism Aortic valve replacement Warfarin anticoagulation CAD Plan: Telemetry Cardiology consult Gentle IV fluids Hold diltiazem 10/06/2021: Supportive care Pacemaker? Diagnosis/Problems Diagnosis/Problems (1) Complete heart block Status: Acute (2) Coronary artery disease without angina pectoris (3) Primary hypertension (4) Mixed hyperlipidemia (5) History of mechanical aortic valve replacement Clinical Quality Measures AMI/AHF: ASA po Prior to arrival: ANNA Munoz DO October 07, 2021 06:02
[2021-10-07 06:03] LABS: CALCIUM 9.6 MG/DL (8.5-10.1)
[2021-10-07 06:04] LABS: TOTAL PROTEIN 6.9 GM/DL (6.4-8.2)
[2021-10-07 06:06] LABS: BILIRUBIN,TOTAL 0.7 MG/DL (0.1-1.0)
[2021-10-07 06:08] LABS: CREATININE SERUM 0.83 MG/DL (0.60-1.30)
[2021-10-07] MEDS: RT-ALBUTEROL SULF 2.5 MG/3 ML PRE-MIX VIAL INH SCH (06:58)
[2021-10-07 07:40] VITALS: BP 156/98
[2021-10-07] MEDS ORDERED: LOSA50TA63 PO (08:20)
--- NOTE | 2021-10-07 08:24 | Cardiology Progress Note ---
Progress Note-Cardiology Events since last exam Date Seen by Provider: October 07, 2021 Time Seen by Provider: 08:23 Events since last exam I am following her due to complete heart block that has now resolved after s topping her outpatient diltiazem which she was taking for hypertension. She denies any recurrent chest discomfort, dyspnea at rest, palpitations, syncope, or ankle edema. Certain portions of this document may have been dictated utilizing voice recognition technology. Inherent to this technology, typographical and grammatical errors may exist. As much as I am diligent to identify and correct these mistakes, some errors may remain in the document. Vitals Last set of Vitals Signs Vital Signs 10/05/21 10/07/21 13:58 11:32 Temp 36.2 Pulse 83 Resp 21 B/P (MAP) 156/98 Pulse Ox 97 O2 Delivery Room Air O2 Flow Rate 0.00 FiO2 21 Labs Labs Laboratory Tests 10/07/21 05:30 Exam Vital Signs Vital Signs Date Time Temp Pulse Resp B/P (MAP) Pulse Ox O2 Delivery O2 Flow Rate FiO2 10/07/21 11:32 36.2 83 21 156/98 97 Room Air 0.00 10/05/21 13:58 21 Physical Exam General: Alert. No acute distress. She is obese. Eye: No xanthelasma. HENT: Normocephalic. Neck: Jugular venous pressure does not appear elevated. Respiratory: Lungs are clear to auscultation. Respirations are non-labored. Breath sounds are equal. Symmetrical chest wall expansion. Cardiovascular: Normal rate. Regular rhythm. Normal S1. Metallic S2. 2/6 systolic ejection murmur. No gallop. Trace bilateral pretibial edema. Gastrointestinal: Soft. Normal bowel sounds. Skin: Warm. Dry. Neurologic: Alert and oriented to person, place, time. Cranial nerves 3-11 grossly intact. Psychiatric: Cooperative. Appropriate mood & affect. Labs Laboratory Tests Test 10/07/21 05:30 Range/Units White Blood Count 6.0 4.3-11.0 10^3/uL Red Blood Count 4.67 3.80-5.11 10^6/uL Hemoglobin 13.2 11.5-16.0 g/dL Hematocrit 40 35-52 % Mean Corpuscular Volume 87 80-99 fL Mean Corpuscular Hemoglobin 28 25-34 pg Mean Corpuscular Hemoglobin Concent 33 32-36 g/dL Red Cell Distribution Width 14.1 10.0-14.5 % Platelet Count 258 130-400 10^3/uL Mean Platelet Volume 9.5 9.0-12.2 fL Immature Granulocyte % (Auto) 0 % Neutrophils (%) (Auto) 60 42-75 % Lymphocytes (%) (Auto) 28 12-44 % Monocytes (%) (Auto) 8 0-12 % Eosinophils (%) (Auto) 2 0-10 % Basophils (%) (Auto) 2 0-10 % Neutrophils # (Auto) 3.6 1.8-7.8 10^3/uL Lymphocytes # (Auto) 1.7 1.0-4.0 10^3/uL Monocytes # (Auto) 0.5 0.0-1.0 10^3/uL Eosinophils # (Auto) 0.1 0.0-0.3 10^3/uL Basophils # (Auto) 0.1 0.0-0.1 10^3/uL Immature Granulocyte # (Auto) 0.0 0.0-0.1 10^3/uL Prothrombin Time 20.3 H 12.2-14.7 SEC INR Comment 1.7 H 0.8-1.4 Sodium Level 141 135-145 MMOL/L Potassium Level 4.5 3.6-5.0 MMOL/L Chloride Level 109 H 98-107 MMOL/L Carbon Dioxide Level 19 L 21-32 MMOL/L Anion Gap 13 5-14 MMOL/L Blood Urea Nitrogen 15 7-18 MG/DL Creatinine 0.83 0.60-1.30 MG/DL Estimat Glomerular Filtration Rate 76 BUN/Creatinine Ratio 18 Glucose Level 102 70-105 MG/DL Calcium Level 9.6 8.5-10.1 MG/DL Corrected Calcium 9.8 8.5-10.1 MG/DL Total Bilirubin 0.7 0.1-1.0 MG/DL Aspartate Amino Transf (AST/SGOT) 27 5-34 U/L Alanine Aminotransferase (ALT/SGPT) 22 0-55 U/L Alkaline Phosphatase 118 40-136 U/L Total Protein 6.9 6.4-8.2 GM/DL Albumin 3.7 3.2-4.5 GM/DL Diagnosis/Problems Diagnosis/Problems (1) Complete heart block Status: Acute Assessment & Plan: She appeared to have intermittent complete heart block in the emergency room. I suspect this may have contributed to her chest discomfort and dyspnea. She just started taking diltiazem about 3 months ago. This may have caused the heart block. She now seems to be spending most of her time in sinus rhythm with first-degree AV block. From a cardiac standpoint, she can be discharged home. I have arranged for an outpatient 2-week event recorder and also instructed her to make an appointment with her regular bioinformatics technician at [facility] in about 1 month. We should have the results of the external monitor by that point in time. I did speak with her regular bioinformatics technician, Dr. Patel, this morning and updated him on the patient's status. (2) Coronary artery disease without angina pectoris Assessment & Plan: The episode of chest discomfort on the morning of admission was very short-lived. She had no ischemic changes on her electrocardiogram. Her troponin level was undetectable. I would just recommend we continue her statin medication. She is not taking aspirin because she is on warfarin for the aortic valve replacement. She is not a candidate for beta-vitaly due to the bradycardia. (3) Primary hypertension Assessment & Plan: She was on diltiazem for her hypertension. This has now been discontinued. I started her on losartan. Her renal function will need to be followed after discharge. (4) Mixed hyperlipidemia Assessment & Plan: Continue statin medication. (5) History of mechanical aortic valve replacement Assessment & Plan: I told her to resume her warfarin this evening. I had held this on 10/06 in the event she needed a pacemaker today. (6) Acute kidney injury Assessment & Plan: She had a slight bump in her creatinine level at the time of admission. This has improved. Her creatinine level will need to be followed after discharge. DARLENE SIMMONS JR, MD October 07, 2021 08:24
[2021-10-07] MEDS: DOCUSATE SODIUM 100 MG (COLACE) CAP PO SCH (08:29)
[2021-10-07] MEDS: SENNOSIDES 8.6 MG (SENOKOT) TAB PO SCH (08:29)
[2021-10-07] MEDS: LOSARTAN 50 MG (COZAAR) TAB PO SCH (08:29)
[2021-10-07] MEDS: LEVOTHYROXINE 100 MCG (LEVOTHROID) TAB PO SCH (08:29)
[2021-10-07] MEDS ORDERED: METHYLCELLULOSE (CITRUCEL) 500 MG CAPLET PO SCH (09:00)
--- NOTE | 2021-10-07 10:41 | Discharge Summary ---
Discharge Summary Hospital Course Was the Problem List Reviewed?: Yes Problems/Dx: (1) Complete heart block Status: Acute (2) Coronary artery disease without angina pectoris (3) Primary hypertension (4) Mixed hyperlipidemia (5) History of mechanical aortic valve replacement (6) Acute kidney injury Hospital Course Date of Admission: October 05, 2021 at 10:17 Admission Diagnosis : Family Physician/Provider: Rich Zuniga MD Date of Discharge: 10/07/21 Discharge Diagnosis: Complete heart block Hospital Course: Pt had an uneventful hospital course. Pt was admitted for complete heart block and chest pressure. Pt was discontinued on Diltiazem which she had been on for 3 months. She did have an event monitor placed for 2 weeks at discharge. Cardiology evaluated everything and sent all of her cardiac meds in. Labs and Pending Lab Test: Laboratory Tests 10/07/21 05:30: White Blood Count 6.0, Red Blood Count 4.67, Hemoglobin 13.2, Hematocrit 40, Mean Corpuscular Volume 87, Mean Corpuscular Hemoglobin 28, Mean Corpuscular Hemoglobin Concent 33, Red Cell Distribution Width 14.1, Platelet Count 258, Mean Platelet Volume 9.5, Immature Granulocyte % (Auto) 0, Neutrophils (%) (Auto) 60, Lymphocytes (%) (Auto) 28, Monocytes (%) (Auto) 8, Eosinophils (%) (Auto) 2, Basophils (%) (Auto) 2, Neutrophils # (Auto) 3.6, Lymphocytes # (Auto) 1.7, Monocytes # (Auto) 0.5, Eosinophils # (Auto) 0.1, Basophils # (Auto) 0.1, Immature Granulocyte # (Auto) 0.0, Prothrombin Time 20.3H, INR Comment 1.7H, Sodium Level 141, Potassium Level 4.5, Chloride Level 109H, Carbon Dioxide Level 19L, Anion Gap 13, Blood Urea Nitrogen 15, Creatinine 0.83, Estimat Glomerular Filtration Rate 76, BUN/Creatinine Ratio 18, Glucose Level 102, Calcium Level 9.6, Corrected Calcium 9.8, Total Bilirubin 0.7, Aspartate Amino Transf (AST/SGOT) 27, Alanine Aminotransferase (ALT/SGPT) 22, Alkaline Phosphatase 118, Total Protein 6.9, Albumin 3.7 Home Meds Active Losartan Potassium 50 Mg Tablet 50 Mg PO DAILY Reported Fiber (Methylcellulose) 500 Mg Tablet 1,500 Mg PO Q48H TAKES 3 (500MG) TABS Tylenol Extra Strength (Acetaminophen) 500 Mg Tablet 500-1,000 Mg PO Q8H PRN Centrum Silver Tablet (Multivit-Min/FA/Lycopene/Lut) 0.4 Mg-300 Mcg-250 Mcg Tablet 1 Each PO DAILY Vitamin D3 (Cholecalciferol (Vitamin D3)) 50 Mcg (2000 Unit) Capsule 50 Mcg PO DAILY Vitamin C (Ascorbate Calcium) 500 Mg Tablet 500 Mg PO DAILY Vitamin B-12 (Cyanocobalamin (Vitamin B-12)) 500 Mcg Tablet 500 Mcg PO DAILY Jantoven (Warfarin Sodium) 4 Mg Tablet 4 Mg PO DAILY Diltiazem 24Hr ER (Diltiazem HCl) 180 Mg Cap.er.24h 180 Mg PO DAILY Atorvastatin Calcium 40 Mg Tablet 40 Mg PO DAILY Levothyroxine Sodium 100 Mcg Tablet 100 Mcg PO DAILY Assessment/Pt Instructions PCP in 1 week Discharge Planning: <30 minutes discharge planning Discharge Instructions Discharge Diet: No Restrictions Activity as Tolerated: Yes Discharge Physical Examination Vital Signs Vital Signs Date Time Temp Pulse Resp B/P (MAP) Pulse Ox O2 Delivery O2 Flow Rate FiO2 10/07/21 08:00 Room Air 10/07/21 07:40 36.2 83 21 156/98 (117) 97 10/06/21 12:25 0.00 10/05/21 13:58 21 General Appearance: No Apparent Distress, WD/WN Respiratory: Lungs Clear, Normal Breath Sounds Cardiovascular: Regular Rate, Rhythm Allergies: Coded Allergies: diltiazem (Verified Allergy, Unknown, 10/07/21) Discharge Summary Date of Admission October 05, 2021 at 10:17 Date of Discharge Discharge Date: October 07, 2021 Admission Diagnosis Assessment: Complete heart block Weakness Hypothyroidism Aortic valve replacement Warfarin anticoagulation CAD Plan: Telemetry Cardiology consult Gentle IV fluids Hold diltiazem Discharge Diagnosis Assessment: Complete heart block Weakness Hypothyroidism Aortic valve replacement Warfarin anticoagulation CAD Plan: Telemetry Cardiology consult Gentle IV fluids Hold diltiazem 10/06/2021: Supportive care Pacemaker? (1) Complete heart block Status: Acute Assessment & Plan: She appeared to have intermittent complete heart block in the emergency room. I suspect this may have contributed to her chest discomfort and dyspnea. She just started taking diltiazem about 3 months ago. This may have caused the heart block. She now seems to be spending more of her time in sinus rhythm with first-degree AV block. Hopefully, the complete heart block will resolve by tomorrow. We may need to wait another 24-48 hours for the diltiazem to completely metabolize from her system before we determine whether or not she might need a permanent pacemaker. (2) Coronary artery disease without angina pectoris Assessment & Plan: The episode of chest discomfort on the morning of admission was very short-lived. She has no ischemic changes on her electrocardiogram. Her troponin level was undetectable. I would just recommend we resume her statin medication. She is not taking aspirin because she is on warfarin for the aortic valve replacement. She is not a candidate for beta-vitaly due to the bradycardia. (3) Primary hypertension Assessment & Plan: She was on diltiazem for her hypertension. This has now been discontinued. Her blood pressure has now become elevated. I will start losartan. We will need to watch her renal function. (4) Mixed hyperlipidemia Assessment & Plan: Continue statin medication. (5) History of mechanical aortic valve replacement Assessment & Plan: I will hold the warfarin this evening in the event she needs a permanent pacemaker tomorrow. My partner who would do the pacemaker would prefer the warfarin to be held prior to the procedure. (6) Acute kidney injury Assessment & Plan: She had a slight bump in her creatinine level at the time of admission. This has improved. We will need to watch this closely with the addition of losartan for her hypertension. Clinical Quality Measures AMI/AHF: ASA po Prior to arrival: ANNA Munoz DO October 07, 2021 10:41
[2021-10-07 11:32] VITALS: BP 156/98
== END 2021-10-07 11:32 | disposition home or self-care (01) ==
LOC: EDUNIT# 08:31 → ER 08:32 → CSD 10:17
PROVIDERS: ADMIT Internal Medicine; ATTEND Internal Medicine
DX: I44.2 Atrioventricular block, complete (principal); I25.10 Atherosclerotic heart disease of native coronary artery without angina pectoris; I10 Essential (primary) hypertension; I48.91 Unspecified atrial fibrillation; E03.9 Hypothyroidism, unspecified; E78.2 Mixed hyperlipidemia; N17.9 Acute kidney failure, unspecified; Z79.01 Long term (current) use of anticoagulants; Z95.2 Presence of prosthetic heart valve; Z79.899 Other long term (current) drug therapy; Z79.890 Hormone replacement therapy
CPT/HCPCS: 36415; 71045; 80053; 80061; 83735; 83874; 84439; 84443; 84484; 85025; 85610; 85730; 93005; 93041; 94640; 96360; 96361

== ENCOUNTER 2021-10-07 14:00 | Outpatient (RCR) | payer MEDICARE ==
[~2021-10-07 14:00] MED LIST changes: +ACET-2267 PO; +ASCO-262 PO; +CYAN500T8 PO; +DILT180C85 PO; +LOSA50TA63 PO; +METH-336 PO; +WARF4TAB9 PO
== END 2021-10-11 | disposition home or self-care (01) ==
LOC: CARD 14:00
PROVIDERS: ATTEND Internal Medicine Cardiovascular Disease
DX: I44.2 Atrioventricular block, complete (principal)

== ENCOUNTER 2022-05-12 15:17 | Emergency (ER) | payer MEDICARE ==
[~2022-05-12] VITALS: Ht 149 cm; Wt 79.0 kg
[~2022-05-12 15:17] MED LIST changes: -CAND1TAB16 PO; +CAND1TAB17 PO
[2022-05-12] MEDS ORDERED: MOLN200C PO (16:10)
--- NOTE | 2022-05-12 16:10 | ED Cough/URI ---
General Chief Complaint: COVID19 Suspect/Confirmed Stated Complaint: COVID + 05/12 - COUGH HEADACHE Nursing Triage Note: AMBULATED TO ROOM 10. STATES SHE TESTED POSITIVE FOR COVID TODAY AND FEELS GREAT BUT WOULD LIKE TO BE STARTED ON MEDICATION FOR COVID. Source: patient Exam Limitations: no limitations History of Present Illness Date Seen by Provider: May 12, 2022 Time Seen by Provider: 15:48 Initial Comments Here with report of being COVID-positive today. Apparently she was exposed to her sister who is COVID-positive last Sunday. She has been testing daily and came up positive today. Noted headache started yesterday and runny nose today. Denies breathing problems or persistent uncontrolled fever. She is on warfarin. She is requesting COVID therapeutics if available. She tried to get a hold of her doctor, Dr. Zuniga today, who apparently is out of office so she came here. Timing/Duration: yesterday Severity/Quality: moderate Prior Episodes/Possible Cause: no prior episodes Associated Symptoms: cough, headache Allergies and Home Medications Allergies Coded Allergies: diltiazem (Verified Allergy, Unknown, 10/07/21) Patient Home Medication List Home Medication List Reviewed: Yes Acetaminophen (Tylenol Extra Strength) 500 Mg Tablet, 500-1,000 MG PO Q8H PRN for PAIN-MILD (1-4), (Reported) Entered as Reported by: MARIO ROBERSON on 10/05/211406 Ascorbate Calcium (Vitamin C) 500 Mg Tablet, 500 MG PO DAILY, (Reported) Entered as Reported by: MARIO ROBERSON on 10/05/21 140 Atorvastatin Calcium (Atorvastatin Calcium) 40 Mg Tablet, 40 MG PO DAILY, (R eported) Entered as Reported by: CHRISTIE RIVAS on 08/23/18 1351 Cholecalciferol (Vitamin D3) (Vitamin D3) 50 Mcg (2000 Unit) Capsule, 50 MCG PO DAILY, (Reported) Entered as Reported by: MARIO ROBERSON on 10/05/21 140 Cyanocobalamin (Vitamin B-12) (Vitamin B-12) 500 Mcg Tablet, 500 MCG PO DAILY, (Reported) Entered as Reported by: MARIO ROBERSON on 10/05/21 1407 Levothyroxine Sodium (Levothyroxine Sodium) 100 Mcg Tablet, 100 MCG PO DAILY, (Reported) Entered as Reported by: CHRISTIE RIVAS on 08/23/18 1351 Losartan Potassium (Losartan Potassium) 50 Mg Tablet, 50 MG PO DAILY Prescribed by: DARLENE SIMMONS JR, MD on 10/07/21 0820 Methylcellulose (Fiber) 500 Mg Tablet, 1,500 MG PO Q48H, (Reported) Entered as Reported by: MARIO ROBERSON on 10/05/21 1407 Molnupiravir (Molnupiravir (Eua)) 200 Mg Capsule, 800 MG PO BID Prescribed by: MICHAEL DOMÍNGUEZ on 05/12/22 1610 Multivit-Min/FA/Lycopene/Lut (Centrum Silver Tablet) 0.4 Mg-300 Mcg-250 Mcg Tablet, 1 EACH PO DAILY, (Reported) Entered as Reported by: MARIO ROBERSON on 10/05/21 1407 Warfarin Sodium (Jantoven) 4 Mg Tablet, 4 MG PO DAILY, (Reported) Entered as Reported by: MARIO ROBERSON on 10/05/21 1407 Review of Systems Review of Systems Constitutional: see HPI; No chills, No fever EENTM: nose congestion; No throat pain Respiratory: cough; No short of breath Gastrointestinal: No nausea, No vomiting Psychiatric/Neurological: Headache; Denies Weakness Past [id number]-[id number] Hx Patient Social History Tobacco Use?: No Substance use?: No Alcohol Use?: No Immunizations Up To Date Tetanus Booster (TDap): Unknown PED Vaccines UTD: No First/Initial COVID19 Vaccinat: 06/04 Second COVID19 Vaccination Austen: 06/04 Third COVID19 Vaccination Date: 06/04 COVID19 Vaccine Engineering Operations Leader: UNKNOWN Past Medical History Surgeries: Yes ( ovarian cyst removal, 2011 aortic valve replaced, gastric bypass) Coronary Stent, Hysterectomy, Valve Replacement Respiratory: No Cardiac: Yes (aortic valve replaced, mitral valve disease) Hypertension, Valvular Heart Disease Neurological: No Genitourinary: No Gastrointestinal: No Musculoskeletal: No Endocrine: Yes Hypothyroidsim, Lupus HEENT: Yes (cataracts removed) Cancer: No Psychosocial: No Integumentary: No Blood Disorders: No Family Medical History Reviewed Nursing Family Hx No Pertinent Family Hx Physical Exam Vital Signs - First Documented 05/12/22 15:26 Temp 35.8 Pulse 60 Resp 16 B/P (MAP) 190/82 (118) Pulse Ox 97 O2 Delivery Room Air Capillary Refill : Less Than 3 Seconds Height: 4'11.00" Weight: 198lbs. 0.0oz. 89.327017ly; 35.00 BMI Method:Stated General Appearance: WD/WN, no apparent distress Respiratory: lungs clear, normal breath sounds Cardiovascular: regular rate, rhythm, no murmur Neurologic/Psychiatric: alert, oriented x 3 Progress/Results/Core Measures Suspected Sepsis SIRS Temperature: Pulse: 60 Respiratory Rate: 16 Blood Pressure 190 /82 Mean: 118 Results/Orders Vital Signs/I&O 05/12/22 15:26 Temp 35.8 Pulse 60 Resp 16 B/P (MAP) 190/82 (118) Pulse Ox 97 O2 Delivery Room Air Capillary Refill : Less Than 3 Seconds Blood Pressure Mean: 118 Progress Note : Progress Note Seen and evaluated. Given patient's positive test today at home, COVID therape utics are indicated. Patient has medication interaction with warfarin so Paxlovid is not an option. We will prescribe molnupiravir as a secondary option. This was discussed with the patient. We will send that to [facility] as they do have it there. Discharged home with return precautions. Patient verbalized understanding of instructions and agreement with plan. A copy of the chart was sent to Dr. Zuniga. Departure Impression Primary Impression: COVID-19 virus infection Disposition: 01 HOME, SELF-CARE Condition: Stable Departure-Patient Inst. Referrals: TOM ZUNIGA MD (PCP/Family) Primary Care Physician Patient Instructions: COVID-19 Overview, Molnupiravir Add. Discharge Instructions: All discharge instructions reviewed with patient and/or family. Voiced understanding. Take medications as prescribed. You may take Tylenol/acetaminophen 1000 mg every 6-8 hours as needed for fever or pain. Drink plenty of fluids and get plenty of rest. Stay out of public for 5 days and until fever free for 24 hours without fever reducing medicines. You should continue to wear a mask for 5 more days after that to help prevent spread of infection. Return for breathing problems, weakness, vomiting, chest pain, persistent and uncontrolled fever or other concerns as needed. But your doctor know about infection. A copy of this chart was sent to your doctor. Scripts Molnupiravir (Molnupiravir (Eua)) 200 Mg Capsule 800 MG PO BID for 5 Days, #40 CAP Prov: MICHAEL DOMÍNGUEZ MD 05/12/22 Copy Copies To 1: TOM ZUNIGA MD, TIMOTHY D MD May 12, 2022 16:10
[2022-05-12 16:22] VITALS: BP 190/82
== END 2022-05-12 16:22 | disposition home or self-care (01) ==
LOC: EDUNIT# 15:17 → ER 15:18
DX: U07.1 COVID-19 (principal); Z73.0 Burn-out
CPT/HCPCS: 99281